=== PATIENT | female | born 1940 | race Caucasian/White ===

== ENCOUNTER 2016-12-23 22:06 | Inpatient (IN) | payer MEDICARE, OTHER ==
[~2016-12-23] VITALS: Ht 160 cm; Wt 51.4 kg
[2016-12-23] MEDS ORDERED: FAMOTIDINE 20 MG INJ IV STA (22:17)
[2016-12-23] MEDS ORDERED: INSU100V3 IJ (22:26)
[2016-12-23] MEDS ORDERED: DULO60CA6 GTB (22:27)
[2016-12-23] MEDS ORDERED: TRAZ50TA18 GTB (22:27)
[2016-12-23] MEDS ORDERED: ATOR10TA65 GTB (22:28)
[2016-12-23] MEDS ORDERED: ERGO500037 PO (22:28)
[2016-12-23] MEDS ORDERED: ACID1TAB14 GTB (22:29)
[2016-12-23] MEDS ORDERED: PRED5 GTB (22:30)
[2016-12-23] MEDS ORDERED: MULTI GTB (22:30)
[2016-12-23] MEDS ORDERED: MAGN400O4 GTB (22:31)
[2016-12-23] MEDS ORDERED: BETH50TA GTB (22:31)
[2016-12-23] MEDS ORDERED: CLON-379 GTB (22:32)
[2016-12-23] MEDS ORDERED: LACT20SO2 GTB (22:32)
[2016-12-23] MEDS ORDERED: FERR325C GTB (22:33)
[2016-12-23] MEDS ORDERED: DOCU60SY5 GTB (22:34)
[2016-12-23] MEDS ORDERED: UDREG GTB (22:34)
[2016-12-23] MEDS ORDERED: LEVO75TA5 PO (22:34)
[2016-12-23] MEDS ORDERED: MAGN400T28 GTB (22:35)
[2016-12-23] MEDS ORDERED: SENN-53 GTB (22:35)
[2016-12-23] MEDS ORDERED: LYR75 GTB (22:36)
[2016-12-23] MEDS ORDERED: SODI1TAB2 GTB (22:36)
[2016-12-23] MEDS ORDERED: TERA5CAP3 GTB (22:36)
[2016-12-23] MEDS ORDERED: SIME80TA GTB (22:37)
[2016-12-23] MEDS ORDERED: METO25TA4 GTB (22:38)
[2016-12-23] MEDS ORDERED: AMIO200T2 GTB (22:38)
[2016-12-23] MEDS ORDERED: EPOE10002 IJ (22:39)
[2016-12-23 23:05] LABS: BASOPHILS % 0.3 % (0.0-2.0); EOSINOPHILS # 0.1 10^3/ul (0.0-0.5); EOSINOPHILS % 0.9 % (0.0-7.0); HEMATOCRIT 22.3 % (37.0-47.0); HEMOGLOBIN 7.2 g/dl (12.0-16.0); LYMPHOCYTES # 1.1 10^3/ul (0.8-2.9); LYMPHOCYTES % 12.9 % (15.0-51.0); MEAN CORPUSCULAR HEMOGLOBIN 27.9 pg (29.0-33.0); MEAN CORPUSCULAR HGB CONC 32.5 g/dl (32.0-37.0); MEAN PLATELET VOLUME 9.2 fl (7.4-10.4); MONOCYTE # 0.8 10^3/ul (0.3-0.9); MONOCYTES % 9.3 % (0.0-11.0); NEUTROPHIL # 6.6 10^3/ul (1.6-7.5); NEUTROPHILS % 76.6 % (39.0-77.0); PLATELET COUNT 249 10^3/UL (140-440); RED BLOOD COUNT 2.59 10^6/ul (4.20-5.40); RED CELL DISTRIBUTION WIDTH 17.8 % (11.5-14.5); UNCORRECTED WBC 8.6 10^3/ul (4.8-10.8); WHITE BLOOD COUNT 8.6 10^3/ul (4.8-10.8)
[2016-12-23 23:11] LABS: CONDITION 1; LH ANALYZER COMMENTS 1
[2016-12-23 23:15] LABS: ALBUMIN 2.6 g/dl (3.3-4.9); CHLORIDE 93 mmol/L (97-110)
[2016-12-23 23:16] LABS: POTASSIUM 3.8 mmol/L (3.5-5.1); SODIUM 136 mmol/L (135-144)
--- NOTE | 2016-12-23 23:16 | RADRPT ---
PROCEDURE: XR Chest. CLINICAL INDICATION: Shortness of breath TECHNIQUE: A single portable view of the chest was obtained. COMPARISON: None FINDINGS: A tracheostomy tube is seen. The aorta is tortuous and atherosclerotic. The cardiomediastinal silh ouette is otherwise mildly enlarged. Bilateral pleural effusions are seen with bibasilar air space d isease. Mild diffuse pulmonary vascular congestion is seen. The soft tissues and osseous structures demonstrate benign age related senescent changes. IMPRESSION: 1. Bilateral pleural effusions with bibasilar air space disease. 2. Mild diffuse pulmonary vascular congestion. 3. Mild cardiomegaly. RPTAT: HPNM Physician Sree Date Time Electronically viewed and signed by Maged Sim Physician on 12/23/2016 23:16 /
[2016-12-23 23:17] LABS: INR 1.04; PROTIME 13.6 Sec (12.2-14.2); PT RATIO 1.1
[2016-12-23 23:18] LABS: ANION GAP 12 (8-16); CARBON DIOXIDE 35 mmol/L (21-31); CREATININE 0.58 mg/dl (0.44-1.00)
[2016-12-23 23:19] LABS: ALANINE AMINOTRANSFERASE 28 IU/L (13-69); ALBUMIN/GLOBULIN RATIO 0.96; ALKALINE PHOSPHATASE 35 IU/L (42-121); ASPARTATE AMINO TRANSFERASE 16 IU/L (15-46); BLOOD UREA NITROGEN 16 mg/dl (7-20); CALCIUM 8.5 mg/dl (8.4-10.2); GLUCOSE 88 mg/dl (70-220); TOTAL PROTEIN 5.3 g/dl (6.1-8.1)
[2016-12-23 23:35] LABS: TROPONIN-I < 0.012 ng/ml (0.00-0.12)
[2016-12-24] VITALS (11 sets, daily range): BP systolic 126–148; BP diastolic 60–70; PULSE 64–77; RESP 17–22; TEMP 98.6; Ht 160 cm; Wt 51.4 kg
[2016-12-24] MEDS ORDERED: ALBUTEROL 0.5% (NEB) 2.5 MG/0.5 ML AMP HHN ONE (01:12)
[2016-12-24] MEDS ORDERED: IPRATROPIUM (NEB) 0.5 MG/2.5 ML AMP HHN ONE (01:12)
--- NOTE | 2016-12-24 01:12 | ERA ---
ER Documentation Chief Complaint Date/Time DATE: 12/24/16 TIME: 01:03 Chief Complaint LOW HEMOGLOBIN 7.0, HEMATOCRIT 22.3 HPI 76-year-old female multiple medical comorbidities sent for low hemoglobin of 7 it would likely require transfusion. Patient has chronic trach patient but is communicative. States that this happened to her before requiring transfusion. She denies any GI bleeding. She does feel very weak, dizzy and lightheaded. Also states that she has mild shortness of breath. Denies any chest pain. ROS All systems reviewed and are negative except as per history of present illness. Medications Home Meds Reported Medications Epoetin Marlo (Procrit) 10,000 Unit/1 Ml Vial, 95057 UNIT IJ TUE, LUPE, SAT, VIAL 12/23/16 Amiodarone Hcl* (Amiodarone Hcl*) 200 Mg Tablet, 200 MG GTB DAILY, #30 TAB 12/23/16 Metoprolol Tartrate* (Lopressor*) 25 Mg Tablet, 12.5 MG GTB BID, #60 TAB 12/23/16 Simethicone* (Anti-Gas/80*) 80 Mg Tab.chew, 80 MG GTB Q8 Y for DISTENSION/GAS/ BLOATING, TAB.CHEW 12/23/16 Pregabalin* (Lyrica*) 75 Mg Capsule, 75 MG GTB Q8, CAP 12/23/16 Terazosin Hcl* (Terazosin Hcl*) 5 Mg Capsule, 5 MG GTB Q12, CAP 12/23/16 Sodium Chloride* (Sodium Chloride*) 1 Gm Tablet, 1 GM GTB BID, TAB 12/23/16 Sennosides* (Senna Lax*) 8.6 Mg Tablet, 1 TAB GTB BID, TAB 12/23/16 Magnesium Oxide* (Magnesium Oxide*) 400 Mg Tablet, 400 MG GTB Q12, TAB 12/23/16 Docusate Sodium* (Docusate Sodium*) 60 Mg/15 Ml Syrup, 100 MG GTB Q12, ML 12/23/16 Levothyroxine Sodium* (Levothyroxine Sodium*) 75 Mcg Tablet, 75 MCG PO BEFORE BREAKFAST, #30 TAB 12/23/16 Metoclopramide* (Reglan*) 10 Mg/10 Ml Soln, 5 MG GTB Q6, ML 2/3/17 Ferrous Sulfate (Iron) 325 Mg Capsule.er, 330 MG GTB Q8, CAP 12/23/16 Lactulose* (Lactulose*) 20 Gm/30 Ml Solution, 20 GM GTB BID Y for CONSTIPATION, ML 12/23/16 Clonidine Hcl* (Clonidine Hcl*) 0.1 Mg Tab, 0.1 MG GTB Q8 Y for ELEVATED BLOOD PRESSURE, TAB 12/23/16 Magnesium Hydroxide* (Milk Of Magnesia*) 400 Mg/5 Ml Oral.susp, 30 ML GTB DAILY , ML 12/23/16 Bethanechol Chloride* (Bethanechol Chloride*) 50 Mg Tablet, 50 MG GTB QID, TAB 12/23/16 Multivitamins* (Theragran*) 1 Tab Tab, 1 TAB GTB DAILY, TAB 12/23/16 Prednisone* (Prednisone*) 5 Mg Tab, 5 MG GTB DAILY, TAB 17 Lactobacillus Acidoph/Bulgaricus* (Floranex*) 1 Each Tablet, 1 TAB.CHEW GTB DAILY, TAB.CHEW 12/23/16 Ergocalciferol (Vitamin D2) (VITAMIN D2) 50,000 Unit Capsule, 16462 UNIT PO FRIDAYS, CAP 12/23/16 Atorvastatin Calcium (Atorvastatin Calcium) 10 Mg Tablet, 5 MG GTB QHS, #30 TAB 12/23/16 Trazodone Hcl* (Trazodone Hcl*) 50 Mg Tablet, 50 MG GTB QHS, #30 TAB 12/23/16 Duloxetine Hcl* (Cymbalta*) 60 Mg Capsule.dr, 60 MG GTB DAILY, CAP 12/23/16 Insulin Regular, Human (Humulin R) 100 Unit/1 Ml Vial, 0-10 UNIT IJ Q6, VIAL 12/23/16 Allergies Allergies: Coded Allergies: Penicillins (Verified Allergy, Severe, 12/23/16) celecoxib (Verified Allergy, Severe, 12/23/16) pentazocine (Verified Allergy, Severe, 12/23/16) PMhx/Soc Hx Alcohol Use: No Hx Substance Use: No Hx Tobacco Use: No Smoking Status: Unknown if ever smoked Physical Exam Vitals Vital Signs Date Time Temp Pulse Resp B/P Pulse Ox O2 Delivery O2 Flow Rate FiO2 12/24/16 00:05 62 23 100 30 12/23/16 23:00 98.0 61 18 94/54 95 Mechanical Ventilator 12/23/16 22:20 65 21 95 30 12/23/16 22:15 67 17 98/52 93 Physical Exam Const: [] Mild distress, appears uncomfortable Head: Atraumatic Eyes: Normal Conjunctiva ENT: Normal External Ears, Nose and Mouth. Neck: Full range of motion..~ No meningismus. Resp: Decreased bibasilar breath sounds prolonged expiratory time. Cardio: Regular rate and rhythm, no murmurs Abd: Soft, non tender, non distended. Normal bowel sounds Skin: No petechiae or rashes Back: No midline or flank tenderness Ext: No cyanosis, or edema Neur: Awake and alert and oriented 3, no focal deficits Psych: Normal Mood and Affect Result Diagram: 12/23/16223412/23/162234 Results 24 hrs Laboratory Tests Test 12/23/16 22:35 Activated Partial Thromboplast Time 33.0Sec Alanine Aminotransferase (ALT/SGPT) 28IU/L Albumin 2.6g/dl Albumin/Globulin Ratio 0.96 Alkaline Phosphatase 35IU/L Anion Gap 12 Aspartate Amino Transf (AST/SGOT) 16IU/L Basophils # 0.010^3/ul Basophils % 0.3% Blood Morphology Comment Blood Urea Nitrogen 16mg/dl Calcium Level 8.5mg/dl Carbon Dioxide Level 35mmol/L Chloride Level 93mmol/L Creatinine 0.58mg/dl Direct Bilirubin 0.00mg/dl Eosinophils # 0.110^3/ul Eosinophils % 0.9% Globulin 2.70g/dl Glucose Level 88mg/dl Hematocrit 22.3% Hemoglobin 7.2g/dl INR International Normalized Ratio 1.04 Indirect Bilirubin 0.0mg/dl Lymphocytes # 1.110^3/ul Lymphocytes % 12.9% Mean Corpuscular Hemoglobin 27.9pg Mean Corpuscular Hemoglobin Concent 32.5g/dl Mean Corpuscular Volume 86.0fl Mean Platelet Volume 9.2fl Monocytes # 0.810^3/ul Monocytes % 9.3% Neutrophils # 6.610^3/ul Neutrophils % 76.6% Nucleated Red Blood Cells # 0.010^3/ul Nucleated Red Blood Cells % 0.0/100WBC Platelet Count 15199^3/UL Potassium Level 3.8mmol/L Prothrombin Time 13.6Sec Prothrombin Time Ratio 1.1 Red Blood Count 2.5910^6/ul Red Cell Distribution Width 17.8% Sodium Level 136mmol/L Total Bilirubin 0.0mg/dl Total Protein 5.3g/dl Troponin I < 0.012ng/ml White Blood Count 8.610^3/ul Current Medications Medications (Trade) Dose Ordered Sig/Sandi Route PRN Reason Start Time Stop Time Status Last Admin Dose Admin Famotidine (Pepcid Iv) 20 mg ONCE STAT IV 12/23/16 22:17 12/23/16 22:18 DC 12/23/16 23:24 Procedures/MDM Acute symptomatic anemia as well as COPD exacerbation. Patient being transfused 2 units of packed red blood cells in the emergency room. Also has signs of pulmonary vascular engorgement and mild CHF on x-ray. She was given 20 mg of Lasix as well. Also states that she is short of breath and has prolonged expiratory time likely consistent with her chronic diagnosis of COPD being exacerbated. It iron studies and the emergency room as patient has no prior visits here to help with the anemia workup. Patient is feeling better in the emergency room somewhat. She still feels very weak and dizzy but her shortness of breath is improved. Also has a history of coronary artery disease and STEMI with stenting but does not have any signs of ischemia on her EKG and no chest pain. Dr. Caceres was paged as is the patient's primary care doctor. was covering. And requested the patient be admitted to the hospitalist. Dr. Philip's admitting the patient. EKG interpretation: Normal sinus rhythm rate 62, normal axis, no ST-T wave changes concerning for acute ischemia puppy trainer interpretation: Normal sinus rhythm without arrhythmia Chest x-ray interpretation: Pulmonary vascular engorgement indicating mild CHF, no infiltrates, no widened mediastinum, no fractures Critical care time 33 minutes: This includes time spent balancing acute symptomatic anemia of unknown etiology with congestive heart failure and COPD, chart review, careful fluid administration and maintenance of fluid balance while administering blood which is ministered in the emergency room, monitoring for any possible reactions, chart review, discussion with admitting doctor and patient. She does not include any global procedures. Departure Diagnosis: Primary Impression: Symptomatic anemia Additional Impressions: COPD exacerbation CHF (congestive heart failure) Dyspnea Generalized weakness Condition: Serious PATRICIA MOSES DO Dec 24, 2016 01:12
[2016-12-24 01:13] LABS: IRON 33 ug/dl (35-150)
[2016-12-24 01:22] LABS: TOTAL IRON BINDING CAPACITY 207 ug/dl (241-421)
[2016-12-24] MEDS ORDERED: FUROSEMIDE 20 MG INJ IV ONE (01:30)
[2016-12-24] MEDS ORDERED: ONDANSETRON 4 MG INJ IV PRN ×2 (01:30→07:30)
[2016-12-24] MEDS ORDERED: ACETAMINOPHEN 325 MG TAB PO PRN (01:30)
[2016-12-24 02:49] LABS: RETICULOCYTE COUNT % 3.2 % (0.5-1.5)
[2016-12-24] MEDS: HYDROCODONE/APAP (5/325) TAB PO PRN (06:57)
[2016-12-24] MEDS: LORAZEPAM 0.5 MG TAB PO PRN (06:57)
--- NOTE | 2016-12-24 07:24 | HP ---
Date/Time of Note Date/Time of Note DATE: 12/24/16 TIME: 07:16 Assessment/Plan VTE Prophylaxis VTE Prophylaxis Intervention: SCD's Assessment/Plan Assessment/Plan IMPRESSION 1. Anemia, rule out GI Bleed 2. Chronic Trach dependent resp Failure 3. Diabetes 4. Hypothyroidism 5. Dyslipidemia 6. Major depressive Disorder Plan Blood Transfusion check iron profile and FOBT GI Consult Cont home meds with adjustment as needed Pulmonary consult HPI/ROS Admit Date/Time Admit Date/Time Hx of Present Illness 76-year-old female multiple medical comorbidities sent for low hemoglobin of 7 it would likely require transfusion. Patient has chronic trach patient but is communicative. States that this happened to her before requiring transfusion. She denies any GI bleeding. She does feel very weak, dizzy and lightheaded. Also states that she has mild shortness of breath. Denies any chest pain. In ER, she was found to have a Hgb of 7.2. Vitals have been stable PMH/Family/Social Social History Smoking Status: Unknown if ever smoked Exam/Review of Systems Vital Signs Vitals Vital Signs Date Time Temp Pulse Resp B/P Pulse Ox O2 Delivery O2 Flow Rate FiO2 12/24/16 05:30 98.2 63 16 117/59 98 Mechanical Ventilator 12/24/16 04:50 30 Intake and Output 12/23/16 12/23/16 12/24/16 15:00 23:00 07:00 Intake Total 700 ml Balance 700 ml Labs Result Diagram: 12/23/16223412/23/162234 Medications Medications Current Medications Acetaminophen/ Hydrocodone Bitart ([place] (5/325)) 1 tab Q6 PRN PO PAIN Last administered on 12/24/16 06:57; Admin Dose 1 TAB; Start 12/24/16 at 05:30 Lorazepam (Ativan) 0.5 mg Q6 PRN PO ANXIETY Last administered on 12/24/16 06:57 ; Admin Dose 0.5 MG; Start 12/24/16 at 05:30 HUGH MELGOZA MD Dec 24, 2016 07:24
[2016-12-24] MEDS ORDERED: ACETAMINOPHEN 650 MG SUPP PR PRN (07:30)
[2016-12-24] MEDS ORDERED: NACL 0.9% 3 ML SYG IV SCH (07:30)
[2016-12-24 08:25] LABS: RED BLOOD COUNT 3.36 10^6/ul (4.20-5.40); WHITE BLOOD COUNT 9.4 10^3/ul (4.8-10.8)
[2016-12-24 08:26] LABS: HEMATOCRIT 29.2 % (37.0-47.0); HEMOGLOBIN 9.6 g/dl (12.0-16.0); MEAN CORPUSCULAR HEMOGLOBIN 28.6 pg (29.0-33.0); MEAN CORPUSCULAR HGB CONC 32.9 g/dl (32.0-37.0); MEAN CORPUSCULAR VOLUME 86.9 fl (82.0-101.0); PLATELET COUNT 231 10^3/UL (140-440); RED CELL DISTRIBUTION WIDTH 15.5 % (11.5-14.5)
[2016-12-24 08:30] LABS: ALBUMIN 2.7 g/dl (3.3-4.9); BASOPHILS % 0.5 % (0.0-2.0); EOSINOPHILS % 1.3 % (0.0-7.0); LYMPHOCYTES % 13.3 % (15.0-51.0); MONOCYTES % 11.8 % (0.0-11.0); NEUTROPHIL # 6.7 10^3/ul (1.6-7.5); NEUTROPHILS % 71.3 % (39.0-77.0); NUCLEATED RED BLOOD CELLS% 0.2 /100WBC (0.0-0.0); POTASSIUM 3.4 mmol/L (3.5-5.1)
[2016-12-24 08:31] LABS: BASOPHIL # 0.1 10^3/ul (0.0-0.1); EOSINOPHILS # 0.1 10^3/ul (0.0-0.5); LYMPHOCYTES # 1.3 10^3/ul (0.8-2.9); MONOCYTE # 1.1 10^3/ul (0.3-0.9)
[2016-12-24 08:32] LABS: BILIRUBIN,INDIRECT 0.6 mg/dl (0-1.1); BILIRUBIN,TOTAL 0.6 mg/dl (0.2-1.3); CREATININE 0.52 mg/dl (0.44-1.00)
[2016-12-24 08:33] LABS: CALCIUM 8.6 mg/dl (8.4-10.2); TOTAL PROTEIN 5.4 g/dl (6.1-8.1)
[2016-12-24] MEDS: ALBUTEROL/IPRATROPIUM (NEB) 3 ML AMP HHN SCH ×2 (08:40→13:28)
[2016-12-24] MEDS: FAMOTIDINE 20 MG INJ IV SCH (08:51)
[2016-12-24] MEDS ORDERED: ALBUTEROL 0.5% (NEB) 2.5 MG/0.5 ML AMP NEB SCH (09:00)
[2016-12-24] MEDS ORDERED: FAMOTIDINE 20 MG INJ IV SCH (09:00)
[2016-12-24] MEDS ORDERED: IPRATROPIUM (NEB) 0.5 MG/2.5 ML AMP NEB SCH (09:00)
[2016-12-24] MEDS: morphine 2 MG INJ IV PRN ×3 (11:37→22:43)
[2016-12-24] MEDS: LORAZEPAM 2 MG INJ IV PRN ×3 (12:20→23:46)
[2016-12-24] MEDS ORDERED: LEVO750T25 PO (12:45)
[2016-12-24] MEDS ORDERED: FURO-110 PO (12:46)
[2016-12-24] MEDS: LEVOFLOXACIN 750 MG TABLET GTB SCH (14:28)
[2016-12-24] MEDS ORDERED: POTASSIUM CHLORIDE 20 MEQ POWDER FOR ORAL SOLN GTB ONE (19:30)
[2016-12-24] MEDS: IPRATROPIUM (HFA) 12.9 GM INHALER INH SCH (20:17)
[2016-12-24] MEDS: ALBUTEROL HFA 8 GM INHALER INH SCH (20:17)
[2016-12-25] VITALS (36 sets, daily range): BP systolic 107–163; BP diastolic 38–114; PULSE 60–93; RESP 16–28
[2016-12-25] MEDS: ALBUTEROL HFA 8 GM INHALER INH SCH ×6 (01:32→20:30)
[2016-12-25] MEDS: IPRATROPIUM (HFA) 12.9 GM INHALER INH SCH ×6 (01:32→20:29)
[2016-12-25] MEDS: morphine 2 MG INJ IV PRN ×5 (03:47→21:10)
[2016-12-25 04:27] LABS: AADO2 Arterial 159.7 mmHg (7.0-24.0); Allen Test ACCEPTAB; Arterial COHb 0.2 % (0.0-3.0); Arterial Fraction of Oxyhgb 92.9 % (93.0-99.0); Arterial HCO3 32.1 mmol/L (22.0-26.0); Arterial MetHb 0.2 % (0.0-1.5); Arterial Total Hemglobin 10.7 g/dl (12.0-18.0)
[2016-12-25 04:50] LABS: POTASSIUM 3.8 mmol/L (3.5-5.1)
[2016-12-25 04:53] LABS: CREATININE 0.51 mg/dl (0.44-1.00)
[2016-12-25 04:54] LABS: CALCIUM 8.9 mg/dl (8.4-10.2); MAGNESIUM 1.4 mg/dl (1.7-2.5); PHOSPHORUS 4.7 mg/dl (2.5-4.9)
[2016-12-25 05:01] LABS: BASOPHIL # 0.1 10^3/ul (0.0-0.1); BASOPHILS % 0.7 % (0.0-2.0); EOSINOPHILS # 0.1 10^3/ul (0.0-0.5); EOSINOPHILS % 1.4 % (0.0-7.0); HEMATOCRIT 29.9 % (37.0-47.0); HEMOGLOBIN 9.9 g/dl (12.0-16.0); LYMPHOCYTES # 1.2 10^3/ul (0.8-2.9); LYMPHOCYTES % 14.2 % (15.0-51.0); MEAN CORPUSCULAR HEMOGLOBIN 28.7 pg (29.0-33.0); MEAN CORPUSCULAR HGB CONC 33.2 g/dl (32.0-37.0); MEAN CORPUSCULAR VOLUME 86.5 fl (82.0-101.0); MONOCYTE # 0.9 10^3/ul (0.3-0.9); NEUTROPHIL # 6.3 10^3/ul (1.6-7.5); NEUTROPHILS % 73.7 % (39.0-77.0); PLATELET COUNT 252 10^3/UL (140-440); RED BLOOD COUNT 3.46 10^6/ul (4.20-5.40); RED CELL DISTRIBUTION WIDTH 16.7 % (11.5-14.5); UNCORRECTED WBC 8.5 10^3/ul (4.8-10.8); WHITE BLOOD COUNT 8.5 10^3/ul (4.8-10.8)
[2016-12-25 05:42] LABS: CONDITION 1; LH ANALYZER COMMENTS 1
[2016-12-25] MEDS: FAMOTIDINE 20 MG INJ IV SCH (08:46)
[2016-12-25] MEDS: AMIODARONE 200 MG TAB GTB SCH (08:46)
[2016-12-25] MEDS: LEVOFLOXACIN 750 MG TABLET GTB SCH (08:47)
[2016-12-25] MEDS: METOPROLOL 25 MG TAB GTB SCH ×2 (08:47→20:46)
[2016-12-25] MEDS: TERAZOSIN 5 MG CAP GTB SCH ×2 (08:47→21:00)
[2016-12-25] MEDS: LORAZEPAM 2 MG INJ IV PRN ×3 (09:10→21:36)
--- NOTE | 2016-12-25 11:29 | PN ---
Date/Time of Note Date/Time of Note DATE: 12/25/16 TIME: 11:27 Assessment/Plan VTE Prophylaxis VTE Prophylaxis Intervention: SCD's Lines/Catheters IV Catheter Type (from Nrs): Saline Lock Urinary Cath still in place: Yes Reason Cath still needed: other (indicate) Assessment/Plan Assessment/Plan IMPRESSION Anemia, rule out GI Bleed + Iron deficiency * third admission for anemia in the last 90 days per family * on each admission,patient routinely got 2 units of blood * patient had been started on outpt epogen Hx of endoscopy with duodenal perforation in the past that warranted complicated repair Acute resp failure likely 2/2 fluid overload versus CHF Chronic Trach / Vent dependent resp Failure Hypothyroidism Dyslipidemia Major depressive Disorder Hypomagnesemia Plan Commence gentle diuresis / 2D echo Await GI review and recommendations Replace lytes and IV iron Pulmonary consult Resume previous home meds Supportive care Spoke with family in detail, patient remains full code. evaluation time >35mins PROPHYLAXIS: SCDs / PPI Subjective 24 Hr Interval Summary Free Text/Dictation Patient seen and examined. very lethargic / tachypneic Exam/Review of Systems Vital Signs Vitals Vital Signs Date Time Temp Pulse Resp B/P Pulse Ox O2 Delivery O2 Flow Rate FiO2 12/25/16 09:00 72 22 131/75 96 Trach Collar 12/25/16 08:00 97.3 12/25/16 05:22 40 Intake and Output 12/24/16 12/24/16 12/25/16 15:00 23:00 07:00 Intake Total 20 ml Output Total 675 ml Balance 20 ml -675 ml Exam Constitutional: alert, frail Eyes: PERRL Respiratory: crackles/rales, diminished breath sounds Cardiovascular: regular rate and rhythm, No murmurs/extra sounds Gastrointestinal: bowel sounds, soft Extremities: No edema 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: confused (?), lethargic Results Result Diagram: 12/25/16 0422 12/25/16 0422 Results 24 hrs Laboratory Tests Test 12/25/16 04:13 12/25/16 04:22 Arterial Blood HCO3 32.1 H Arterial Blood Base Excess 7.0 H Arterial Blood Oxygen Saturation 93.3 L David Test ACCEPTAB Arterial Blood Gas Puncture Site Left Radial Arterial Blood Carboxyhemoglobin 0.2 Arterial Blood Date Drawn 12/25/2016 4:14:39 AM Arterial Blood Methemoglobin 0.2 Arterial Blood pCO2 (Temp correct) 48.2 H Arterial Blood pH (Temp corrected) 7.441 Arterial Blood pO2 (Temp corrected) 70.1 L Blood Gas A-a O2 Differential 159.7 H Blood Gas Actual Respiration Rate 19 Blood Gas Inspiratory Pressure 27.0 Blood Gas Low PEEP Setting 5.0 Blood Gas Modality vent-ac Blood Gas Notified Time 12/25/2016 4:27:18 AM Blood Gas Notified Whom jmd Blood Gas Respiration Rate 14.0 Blood Gas Specimen Source Blood arterial Blood Gas Temperature 37.0 Blood Gas Tidal Volume 400.0 FiO2 40.0 Oxyhemoglobin Percent 92.9 L Total Hemoglobin 10.7 L Anion Gap 15 Basophils # 0.1 Basophils % 0.7 Blood Morphology Comment Blood Urea Nitrogen 15 Calcium Level 8.9 Carbon Dioxide Level 32 H Chloride Level 95 L Creatinine 0.51 Eosinophils # 0.1 Eosinophils % 1.4 Glucose Level 62 #L Hematocrit 29.9 L Hemoglobin 9.9 L Lymphocytes # 1.2 Lymphocytes % 14.2 L Magnesium Level 1.4 L Mean Corpuscular Hemoglobin 28.7 L Mean Corpuscular Hemoglobin Concent 33.2 Mean Corpuscular Volume 86.5 Mean Platelet Volume 9.0 Monocytes # 0.9 Monocytes % 10.0 Neutrophils # 6.3 Neutrophils % 73.7 Nucleated Red Blood Cells # 0.0 Nucleated Red Blood Cells % 0.0 Phosphorus Level 4.7 Platelet Count 252 Potassium Level 3.8 Red Blood Count 3.46 L Red Cell Distribution Width 16.7 H Sodium Level 138 White Blood Count 8.5 Medications Medications Current Medications Acetaminophen/ Hydrocodone Bitart ([place] (5/325)) 1 tab Q6 PRN PO PAIN Last administered on 12/24/16 06:57; Admin Dose 1 TAB; Start 12/24/16 at 05:30 Lorazepam (Ativan) 0.5 mg Q6 PRN PO ANXIETY Last administered on 12/24/16 06:57 ; Admin Dose 0.5 MG; Start 12/24/16 at 05:30 Lorazepam (Ativan) 0.5 mg Q6H PRN IV ANXIETY Last administered on 12/25/16 09: 10; Admin Dose 0.5 MG; Start 12/24/16 at 07:30 Ondansetron HCl (Zofran Inj) 4 mg Q6H PRN IV NAUSEA AND/OR VOMITING; Start 12/24 at 07:30 Acetaminophen (Tylenol Supp) 650 mg Q6H PRN [place] PAIN LEVEL 1-3 OR FEVER; Start 12/24/16 at 07:30 Morphine Sulfate (morphine) 2 mg Q4H PRN IV PAIN LEVEL 7-10 Last administered on 12/25/16 08:46; Admin Dose 2 MG; Start 12/24/16 at 07:30 Famotidine (Pepcid Iv) 20 mg DAILY IV Last administered on 12/25/16 08:46; Admin Dose 20 MG; Start 12/24/16 at 09:00 Levofloxacin (Levaquin) 750 mg DAILY GTB Last administered on 12/25/16 08:47; Admin Dose 750 MG; Start 12/24/16 at 14:30; Stop 12/26/16 at 14:29 Amiodarone HCl (Cordarone) 200 mg DAILY GTB Last administered on 12/25/16 08:46 ; Admin Dose 200 MG; Start 12/25/16 at 09:00 Clonidine (Catapres) 0.1 mg Q8 PRN GTB ELEVATED BLOOD PRESSURE>150; Start at 04:30 Metoprolol Tartrate (Lopressor) 12.5 mg BID GTB Last administered on 12/25/16 08:47; Admin Dose 12.5 MG; Start 12/25/16 at 09:00 Terazosin HCl (Hytrin) 5 mg Q12 GTB Last administered on 12/25/16 08:47; Admin Dose 5 MG; Start 12/25/16 at 09:00 Procedures Procedures PROCEDURE: XR Chest. CLINICAL INDICATION: Shortness of breath TECHNIQUE: A single portable view of the chest was obtained. COMPARISON: None FINDINGS: A tracheostomy tube is seen. The aorta is tortuous and atherosclerotic. The cardiomediastinal silhouette is otherwise mildly enlarged. Bilateral pleural effusions are seen with bibasilar air space disease. Mild diffuse pulmonary vascular congestion is seen. The soft tissues and osseous structures demonstrate benign age related senescent changes. IMPRESSION: 1. Bilateral pleural effusions with bibasilar air space disease. 2. Mild diffuse pulmonary vascular congestion. 3. Mild cardiomegaly. RPTAT: HPNM Maged Sim, Physician Date Time Electronically viewed and signed by Maged Sim, Physician on 12/23/2016 23 :16 KOLE GEE Dec 25, 2016 11:29
[2016-12-25] MEDS ORDERED: MAGNESIUM SULFATE 2 GM/50 ML 50 ML IVPB ONE (11:45)
[2016-12-25] MEDS ORDERED: FUROSEMIDE 40 MG INJ IV ONE (12:00)
[2016-12-25] MEDS: DEXTROSE 5%-0.45% NACL 1,000 ML IV SCH (12:55)
[2016-12-25] MEDS: SOD FERRIC GLUC COMPLX 125 MG in SOD CHLORIDE 0.9% 100 ML IVPB SCH (14:14)
[2016-12-25] MEDS: PANTOPRAZOLE IV 80 MG in SOD CHLORIDE 0.9% 100 ML IV SCH (16:00)
--- NOTE | 2016-12-25 16:13 | CONS ---
Date/Time of Note Date/Time of Note DATE: 12/25/16 TIME: 15:59 Assessment/Plan Assessment/Plan Additional Assessment/Plan Anemia * Evaluate for PUD versus secondary to iron deficiency * Iron profile low, currently getting confused * Stool OB * Monitor hemoglobin every 6 hours, transfuse 2 units for hemoglobin less than 7.5 * PPI drip * May consider EGD and/or colonoscopy for further evaluation * Abdominal ultrasound Dysphagia * Dietary consult * [facility], pt to be on Jevity 1.5 to 40ml /hr x 20 hours to provide 800mL/1200 kcal. Will start on Fibersource and have nutrition adjust to comparable to tube feed type. Jevity not available in formulary. Tracheostomy dependent respiratory failure * Pulmonology following Further recommendations depend on clinical course Patient seen in collaboration with Dr. Alcocer Consultation Date/Type/Reason Admit Date/Time Reason for Consultation Gastroenterology Hx of Present Illness 76-year-old female presented to ED with anemia and hemoglobin of 7.8. Patient denies abdominal pain, nausea, vomiting, hematochezia, hematuria Past Surgical History Past Surgical Hx: other (Tracheostomy) Social History Smoking Status: Former smoker Exam/Review of Systems Vital Signs Vitals Vital Signs Date Time Temp Pulse Resp B/P Pulse Ox O2 Delivery O2 Flow Rate FiO2 12/25/16 14:00 60 17 126/62 97 Mechanical Ventilator Trach Collar 12/25/16 12:00 98.0 12/25/16 05:22 40 Intake and Output 12/24/16 12/24/16 12/25/16 15:00 23:00 07:00 Intake Total 20 ml Output Total 675 ml Balance 20 ml -675 ml Exam Constitutional: alert, oriented, other (Thin) Psych: nl mood/affect Head: atraumatic, normocephalic Eyes: EOMI, nl conjunctiva, nl lids, nl sclera ENMT: mucosa pink and moist, nl external ears & nose, nl lips & teeth, nl nasal mucosa & septum, other Cardiovascular: regular rate and rhythm Gastrointestinal: non-tender, soft Musculoskeletal: nl extremities to inspection 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: UX DESIGN LEAD II-XII intact Results Result Diagram: 12/25/16 0422 12/25/16 0422 Results 24 hrs Laboratory Tests Test 12/25/16 04:13 12/25/16 04:22 Arterial Blood HCO3 32.1 H Arterial Blood Base Excess 7.0 H Arterial Blood Oxygen Saturation 93.3 L David Test ACCEPTAB Arterial Blood Gas Puncture Site Left Radial Arterial Blood Carboxyhemoglobin 0.2 Arterial Blood Date Drawn 12/25/2016 4:14:39 AM Arterial Blood Methemoglobin 0.2 Arterial Blood pCO2 (Temp correct) 48.2 H Arterial Blood pH (Temp corrected) 7.441 Arterial Blood pO2 (Temp corrected) 70.1 L Blood Gas A-a O2 Differential 159.7 H Blood Gas Actual Respiration Rate 19 Blood Gas Inspiratory Pressure 27.0 Blood Gas Low PEEP Setting 5.0 Blood Gas Modality vent-ac Blood Gas Notified Time 12/25/2016 4:27:18 AM Blood Gas Notified Whom jmd Blood Gas Respiration Rate 14.0 Blood Gas Specimen Source Blood arterial Blood Gas Temperature 37.0 Blood Gas Tidal Volume 400.0 FiO2 40.0 Oxyhemoglobin Percent 92.9 L Total Hemoglobin 10.7 L Anion Gap 15 Basophils # 0.1 Basophils % 0.7 Blood Morphology Comment Blood Urea Nitrogen 15 Calcium Level 8.9 Carbon Dioxide Level 32 H Chloride Level 95 L Creatinine 0.51 Eosinophils # 0.1 Eosinophils % 1.4 Glucose Level 62 #L Hematocrit 29.9 L Hemoglobin 9.9 L Lymphocytes # 1.2 Lymphocytes % 14.2 L Magnesium Level 1.4 L Mean Corpuscular Hemoglobin 28.7 L Mean Corpuscular Hemoglobin Concent 33.2 Mean Corpuscular Volume 86.5 Mean Platelet Volume 9.0 Monocytes # 0.9 Monocytes % 10.0 Neutrophils # 6.3 Neutrophils % 73.7 Nucleated Red Blood Cells # 0.0 Nucleated Red Blood Cells % 0.0 Phosphorus Level 4.7 Platelet Count 252 Potassium Level 3.8 Red Blood Count 3.46 L Red Cell Distribution Width 16.7 H Sodium Level 138 White Blood Count 8.5 Medications Medications Current Medications Acetaminophen/ Hydrocodone Bitart ([place] (5/325)) 1 tab Q6 PRN PO PAIN Last administered on 12/24/16 06:57; Admin Dose 1 TAB; Start 12/24/16 at 05:30 Lorazepam (Ativan) 0.5 mg Q6 PRN PO ANXIETY Last administered on 12/24/16 06:57 ; Admin Dose 0.5 MG; Start 12/24/16 at 05:30 Lorazepam (Ativan) 0.5 mg Q6H PRN IV ANXIETY Last administered on 12/25/16 15: 08; Admin Dose 0.5 MG; Start 12/24/16 at 07:30 Ondansetron HCl (Zofran Inj) 4 mg Q6H PRN IV NAUSEA AND/OR VOMITING; Start 12/24 at 07:30 Acetaminophen (Tylenol Supp) 650 mg Q6H PRN [place] PAIN LEVEL 1-3 OR FEVER; Start 12/24/16 at 07:30 Morphine Sulfate (morphine) 2 mg Q4H PRN IV PAIN LEVEL 7-10 Last administered on 12/25/16 12:55; Admin Dose 2 MG; Start 12/24/16 at 07:30 Levofloxacin (Levaquin) 750 mg DAILY GTB Last administered on 12/25/16 08:47; Admin Dose 750 MG; Start 12/24/16 at 14:30; Stop 12/26/16 at 14:29 Amiodarone HCl (Cordarone) 200 mg DAILY GTB Last administered on 12/25/16 08:46 ; Admin Dose 200 MG; Start 12/25/16 at 09:00 Clonidine (Catapres) 0.1 mg Q8 PRN GTB ELEVATED BLOOD PRESSURE>150; Start at 04:30 Metoprolol Tartrate (Lopressor) 12.5 mg BID GTB Last administered on 12/25/16 08:47; Admin Dose 12.5 MG; Start 12/25/16 at 09:00 Terazosin HCl 5 mg 5 mg Q12 GTB Last administered on 12/25/16 08:47; Admin Dose 5 MG; Start 12/25/16 at 09:00 Ferric Sodium Gluconate Complex 125 mg/Sodium Chloride 110 ml @ 100 mls/hr Q24H IVPB Last administered on 12/25/16 14:14; Admin Dose 100 MLS/HR; Start 12/25/16 at 13:00; Stop 12/27/16 at 14:05 Dextrose/Sodium Chloride (D5-1/2ns) 1,000 ml @ 50 mls/hr Q20H IV Last administered on 12/25/16 12:55; Admin Dose 50 MLS/HR; Start 12/25/16 at 12:00 Famotidine (Pepcid Iv) 20 mg DAILY IV ; Start 12/26/16 at 09:00 CINDA VALDES Dec 25, 2016 16:11
--- NOTE | 2016-12-25 16:57 | CONS ---
DATE OF ADMISSION: 12/24/2016 DATE OF CONSULTATION: TYPE OF CONSULTATION: Pulmonary. REASON FOR CONSULTATION: Ventilator management. Thank you, Dr. Philip for this consultation. HISTORY OF PRESENT ILLNESS: This is a 76-year-old lady with multiple medical problems including renée t-dependent respiratory failure, history of COPD, hypertension, hyperlipidemia, who was transferred from alf facility for significant anemia with hemoglobin of 7.2. She had no evidence of active GI bleeding. No hemoptysis, hematemesis. No nausea, no vomiting. She remains awake, alert , and comfortable. PAST MEDICAL HISTORY: Depression, hypothyroidism, diabetes, hypertension, hyperlipidemia, COPD and respiratory failure with tracheostomy. MEDICATIONS: Per chart. ALLERGIES: PENICILLIN, CELECOXIB, pentosazone. FAMILY HISTORY: Noncontributory. SYSTEMS REVIEW: A 12-point review of systems was negative other than that mentioned above. PHYSICAL EXAMINATION: GENERAL: Chronically ill-appearing lady, appears comfortable at rest, no acute distress. VITAL SIGNS: Currently afebrile, pulse is 72, blood pressure 130/75, O2 saturation 96% on 40% trach collar. NECK: Trach site clean and intact. CARDIAC: S1, S2, no added sounds or murmurs. CHEST: Diminished air entry bilaterally. ABDOMEN: Soft, nontender. No guarding or rebound. EXTREMITIES: No cyanosis, clubbing, edema. NEUROLOGIC: Generalized weakness. LABORATORIES: White count now 9.9 following blood transfusion. White count 8.5, hemoglobin 9.9, shad telets of 252. BUN 15, creatinine 0.51. ABG: pH 7.4, pCO2 of 48, PaO2 of 70. INR 1.04. IMAGING: Chest x-ray shows bilateral pleural effusions. IMPRESSION AND PLAN: 1. Respiratory failure. 2. Probable underlying chronic obstructive pulmonary disease. 3. Hypertension. 4. Anemia. PLAN: 1. Monitor H and H post-transfusion. 2. Consider gentle diuresis for congestive cardiac failure and pleural effusions. 3. DVT and GI prophylaxis. Dictated By: ELÍAS HERNADEZ/AMY Conf#: [id number] DID#: [id number]
[2016-12-25] MEDS: FUROSEMIDE 40 MG INJ IV SCH (17:02)
--- NOTE | 2016-12-25 19:45 | RADRPT ---
PROCEDURE: US Abdomen complete. CLINICAL INDICATION: Abdominal pain TECHNIQUE: Multiple sonographic images of the abdomen and retroperitoneum were obtained. COMPARISON: None available FINDINGS: Liver: The liver is top normal in size, normal in echogenicity and contour without evidence of mass or ductal dilatation. The maximum dimension is estimated at 18 cm. Gallbladder: Findings are compatible with prior cholecystectomy Common bile duct: Dilated; 11.6 mm. Echogenic shadowing focus of 1.5 cm within the common bile duct is consistent with choledocholithiasis until proven otherwise Pancreas: The duct is measured at 2 mm within limits of normal, no mass lesion is evident. Right Kidney: Moderate hydronephrosis is present. There is no evidence of intrarenal calculus or m ass. The proximal ureter is measured at 1.1 cm. Renal length is estimated at 11 cm. Tiny punctate cortical echogenic foci possibly nephrocalcinosis are noted bilaterally. Left kidney: Normal size, contour and echogenicity with no mass, calculus or hydronephrosis. Renal length is estimated at 9.1 cm. Spleen: Normal in echogenicity measuring 10.9 cm. No masses are evident. Abdominal aorta: Diffuse atherosclerotic calcification is present with some mid and distal aortic e ctasia the maximum dimension however measuring less than 3 cm at 2.7 cm. No aneurysm is evident. IVC: No abnormalities demonstrated. Other: Bilateral pleural effusions slightly larger on the left. RPTAT:HJJR IMPRESSION: 1. Choledocholithiasis in this patient who is status post cholecystectomy, a 1.5 cm common bile bj t stone is visualized. 2. Bilateral pleural effusions slightly larger on the left. 3. Moderate right hydronephrosis. 4. Multiple tiny renal cortical calcifications are noted. 5. Atherosclerotic calcification of the aorta with aortic ectasia but no aneurysm. Physician Tessie Date Time Electronically viewed and signed by Physician Tessie on 12/25/2016 19:45 /
[2016-12-25] MEDS: LORAZEPAM 0.5 MG TAB PO PRN (20:45)
[2016-12-25] MEDS: ATORVASTATIN 10 MG TAB GTB SCH (20:45)
[2016-12-25] MEDS: HYDROCODONE/APAP (5/325) TAB PO PRN (20:45)
[2016-12-25] MEDS: BETHANECHOL 25 MG TAB GTB SCH (20:57)
[2016-12-25] MEDS: SENNA TAB GTB SCH (20:58)
[2016-12-25] MEDS: DOCUSATE SODIUM 10 MG/ML (10ML CUP) GTB SCH (20:58)
[2016-12-25] MEDS ORDERED: DOCUSATE SODIUM 100 MG GTB SCH (21:00)
[2016-12-25] MEDS: MAGNESIUM OXIDE 400 MG TAB GTB SCH (21:00)
[2016-12-26] VITALS (35 sets, daily range): BP systolic 70–151; BP diastolic 45–59; PULSE 58–80; RESP 13–25
[2016-12-26] MEDS: morphine 2 MG INJ IV PRN ×4 (01:21→18:05)
[2016-12-26] MEDS: IPRATROPIUM (HFA) 12.9 GM INHALER INH SCH ×6 (01:33→21:07)
[2016-12-26] MEDS: ALBUTEROL HFA 8 GM INHALER INH SCH ×6 (01:33→21:07)
[2016-12-26] MEDS: PANTOPRAZOLE IV 80 MG in SOD CHLORIDE 0.9% 100 ML IV SCH ×3 (03:18→22:00)
[2016-12-26 05:40] LABS: ALBUMIN 2.6 g/dl (3.3-4.9)
[2016-12-26 05:42] LABS: POTASSIUM 2.9 mmol/L (3.5-5.1)
[2016-12-26 05:43] LABS: BASOPHILS % 0.5 % (0.0-2.0); CREATININE 0.53 mg/dl (0.44-1.00); EOSINOPHILS % 0.7 % (0.0-7.0); HEMATOCRIT 29.6 % (37.0-47.0); LYMPHOCYTES # 1.1 10^3/ul (0.8-2.9); LYMPHOCYTES % 14.2 % (15.0-51.0); MEAN CORPUSCULAR HEMOGLOBIN 28.8 pg (29.0-33.0); MEAN CORPUSCULAR HGB CONC 33.8 g/dl (32.0-37.0); MEAN CORPUSCULAR VOLUME 85.3 fl (82.0-101.0); MONOCYTE # 0.9 10^3/ul (0.3-0.9); MONOCYTES % 11.7 % (0.0-11.0); NEUTROPHIL # 5.5 10^3/ul (1.6-7.5); NEUTROPHILS % 72.9 % (39.0-77.0); PLATELET COUNT 260 10^3/UL (140-440); RED BLOOD COUNT 3.47 10^6/ul (4.20-5.40); RED CELL DISTRIBUTION WIDTH 17.1 % (11.5-14.5); UNCORRECTED WBC 7.6 10^3/ul (4.8-10.8); WHITE BLOOD COUNT 7.6 10^3/ul (4.8-10.8)
[2016-12-26 05:44] LABS: CALCIUM 8.5 mg/dl (8.4-10.2); MAGNESIUM 1.5 mg/dl (1.7-2.5); PHOSPHORUS 4.1 mg/dl (2.5-4.9)
[2016-12-26] MEDS: FUROSEMIDE 40 MG INJ IV SCH ×2 (05:53→17:42)
[2016-12-26] MEDS ORDERED: POTASSIUM CHLORIDE 250 ML IVPB ONE (06:00)
[2016-12-26] MEDS: LEVOTHYROXINE 75 MCG TAB PO SCH (06:07)
[2016-12-26 06:11] LABS: THYROID STIMULATING HORMONE 5.88 MIU/L (0.465-4.680)
[2016-12-26 06:22] LABS: CONDITION 1; LH ANALYZER COMMENTS 1
--- NOTE | 2016-12-26 07:46 | CONS ---
Date/Time of Note Date/Time of Note DATE: 12/26/16 TIME: 07:43 Assessment/Plan Assessment/Plan Additional Assessment/Plan Assessment and recommendations; 1. Patient admitted with anemia status post blood transfusion with stable hematocrit. No evidence of any bleeding from any orifices. 2. Chronic respiratory failure, ventilator dependent. 3. History of hypertension, COPD, CHF, hypothyroidism. Next The current treatment. Ventilator settings have been adjusted, FiO2 has been dropped down to 30%. Continue current supportive care. Consultation Date/Type/Reason Admit Date/Time Dec 24, 2016 at 01:03 Initial Consult Date 24 HR Interval Summary Free Text/Dictation Patient condition is stable. Patient is awake, alert denies any shortness of breath, chest pain. General examination; elderly lady, on mechanical ventilation via tracheostomy, awake, currently in no distress. Exam/Review of Systems Vital Signs Vitals Vital Signs Date Time Temp Pulse Resp B/P Pulse Ox O2 Delivery O2 Flow Rate FiO2 12/26/16 06:00 63 15 137/51 97 Mechanical Ventilator 12/26/16 05:15 40 12/26/16 04:00 99.0 Intake and Output 12/25/16 12/25/16 12/26/16 15:00 23:00 07:00 Intake Total 150 ml 420 ml 1030 ml Output Total 1250 ml 2125 ml 610 ml Balance -1100 ml -1705 ml 420 ml Exam H EENT examination; supple neck, no JVD. Pupils are midsize bilaterally. No neck masses. No thyromegaly. No neck bruits. Chest examination; diminished breath sounds bilaterally. No added sounds. S1- S2 audible, no murmurs, regular rate and rhythm. Abdomen examination; soft, G-tube in place. No organomegaly. Nontender. Extremity examination; no peripheral edema. 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 Results Result Diagram: 12/26/16 0510 12/26/16 0510 Results 24 hrs Laboratory Tests Test 12/26/16 05:10 Albumin 2.6 L Anion Gap 12 Basophils # 0.0 Basophils % 0.5 Blood Morphology Comment Blood Urea Nitrogen 19 Calcium Level 8.5 Carbon Dioxide Level 37 H Chloride Level 92 L Creatinine 0.53 Eosinophils # 0.0 Eosinophils % 0.7 Glucose Level 117 # Hematocrit 29.6 L Hemoglobin 10.0 L Lymphocytes # 1.1 Lymphocytes % 14.2 L Magnesium Level 1.5 L Mean Corpuscular Hemoglobin 28.8 L Mean Corpuscular Hemoglobin Concent 33.8 Mean Corpuscular Volume 85.3 Mean Platelet Volume 9.0 Monocytes # 0.9 Monocytes % 11.7 H Neutrophils # 5.5 Neutrophils % 72.9 Nucleated Red Blood Cells # 0.0 Nucleated Red Blood Cells % 0.0 Phosphorus Level 4.1 Platelet Count 260 Potassium Level 2.9 *L Red Blood Count 3.47 L Red Cell Distribution Width 17.1 H Sodium Level 138 Thyroid Stimulating Hormone (TSH) 5.880 H White Blood Count 7.6 Medications Medications Current Medications Acetaminophen/ Hydrocodone Bitart ([place] (5/325)) 1 tab Q6 PRN PO PAIN Last administered on 12/25/16 20:45; Admin Dose 1 TAB; Start 12/24/16 at 05:30 Lorazepam (Ativan) 0.5 mg Q6 PRN PO ANXIETY Last administered on 12/25/16 20:45 ; Admin Dose 0.5 MG; Start 12/24/16 at 05:30 Lorazepam (Ativan) 0.5 mg Q6H PRN IV ANXIETY Last administered on 12/25/16 21: 36; Admin Dose 0.5 MG; Start 12/24/16 at 07:30 Ondansetron HCl (Zofran Inj) 4 mg Q6H PRN IV NAUSEA AND/OR VOMITING; Start 12/24 at 07:30 Acetaminophen (Tylenol Supp) 650 mg Q6H PRN [place] PAIN LEVEL 1-3 OR FEVER; Start 12/24/16 at 07:30 Morphine Sulfate (morphine) 2 mg Q4H PRN [place] PAIN LEVEL 7-10 Last administered on 12/26/16 06:29; Admin Dose 2 MG; Start 12/24/16 at 07:30 Levofloxacin (Levaquin) 750 mg DAILY GTB Last administered on 12/25/16 08:47; Admin Dose 750 MG; Start 12/24/16 at 14:30; Stop 12/26/16 at 14:29 Amiodarone HCl (Cordarone) 200 mg DAILY GTB Last administered on 12/25/16 08:46 ; Admin Dose 200 MG; Start 12/25/16 at 09:00 Clonidine (Catapres) 0.1 mg Q8 PRN GTB ELEVATED BLOOD PRESSURE>150; Start at 04:30 Metoprolol Tartrate (Lopressor) 12.5 mg BID GTB Last administered on 12/25/16 20:46; Admin Dose 12.5 MG; Start 12/25/16 at 09:00 Terazosin HCl 5 mg 5 mg Q12 GTB Last administered on 12/25/16 21:00; Admin Dose 5 MG; Start 12/25/16 at 09:00 Ferric Sodium Gluconate Complex 125 mg/Sodium Chloride 110 ml @ 100 mls/hr Q24H IVPB Last administered on 12/25/16 14:14; Admin Dose 100 MLS/HR; Start 12/25/16 at 13:00; Stop 12/27/16 at 14:05 Dextrose/Sodium Chloride (D5-1/2ns) 1,000 ml @ 50 mls/hr Q20H IV Last administered on 12/25/16 12:55; Admin Dose 50 MLS/HR; Start 12/25/16 at 12:00 Famotidine 20 mg 20 mg DAILY IV ; Start 12/26/16 at 09:00 Pantoprazole/ Sodium Chloride (Protonix Iv/NS) 100 ml @ 10 mls/hr Q10H IV Last administered on 12/26/16 03:18; Admin Dose 10 MLS/HR; Start 12/25/16 at 16: 00 Atorvastatin Calcium (Lipitor) 5 mg QHS GTB Last administered on 12/25/16 20:45 ; Admin Dose 5 MG; Start 12/25/16 at 21:00 Bethanechol Chloride (Urecholine) 50 mg QID GTB Last administered on 12/25/16 20:57; Admin Dose 50 MG; Start 12/25/16 at 21:00 Duloxetine HCl (Cymbalta) 60 mg DAILY GTB ; Start 12/26/16 at 09:00 Lactobacillus Acidoph/Bulgaricus (Floranex) 1 tab DAILY GTB ; Start 12/26/16 at 09:00 Magnesium Oxide (Mag-Ox 400) 400 mg Q12 GTB Last administered on 12/25/16 21:00 ; Admin Dose 400 MG; Start 12/25/16 at 21:00 Multivitamins Therapeutic (Theragran) 1 tab DAILY GTB ; Start 12/26/16 at 09:00 Senna (Senokot) 1 tab BID GTB Last administered on 12/25/16 20:58; Admin Dose 1 TAB; Start 12/25/16 at 21:00 Docusate Sodium 100 mg 100 mg Q12 GTB Last administered on 12/25/16 20:58; Admin Dose 100 MG; Start 12/25/16 at 21:00 Potassium Chloride (KCl 40 MEQ/250 ML NS) 250 ml @ 62.5 mls/hr ONCE ONCE IVPB Last administered on 12/26/16 05:53; Admin Dose 62.5 MLS/HR; Start 12/26/16 at 06:00; Stop 12/26/16 at 09:59 WEI ESCALERA Dec 26, 2016 07:46
[2016-12-26] MEDS: DULOXETINE 30 MG CAP DR GTB SCH (08:17)
[2016-12-26] MEDS: DOCUSATE SODIUM 10 MG/ML (10ML CUP) GTB SCH ×2 (08:18→21:11)
[2016-12-26] MEDS: TERAZOSIN 5 MG CAP GTB SCH ×2 (08:18→21:11)
[2016-12-26] MEDS: LACTOBACILLUS CHEW TAB GTB SCH (08:18)
[2016-12-26] MEDS: BETHANECHOL 25 MG TAB GTB SCH ×4 (08:18→21:11)
[2016-12-26] MEDS: HYDROCODONE/APAP (5/325) TAB PO PRN ×2 (08:18→23:50)
[2016-12-26] MEDS: MAGNESIUM OXIDE 400 MG TAB GTB SCH ×2 (08:18→21:12)
[2016-12-26] MEDS: FAMOTIDINE 20 MG INJ IV SCH (08:19)
[2016-12-26] MEDS: MULTIVITAMINS THERAPEUTIC TAB GTB SCH (08:19)
[2016-12-26] MEDS: LORAZEPAM 0.5 MG TAB PO PRN (08:19)
[2016-12-26] MEDS: AMIODARONE 200 MG TAB GTB SCH (08:19)
[2016-12-26] MEDS: METOPROLOL 25 MG TAB GTB SCH ×2 (08:19→21:11)
[2016-12-26] MEDS: LEVOFLOXACIN 750 MG TABLET GTB SCH (08:19)
[2016-12-26] MEDS: SENNA TAB GTB SCH ×2 (08:20→21:11)
[2016-12-26] MEDS ORDERED: FUROSEMIDE 20 MG INJ IV SCH (09:00)
[2016-12-26] MEDS: SOD FERRIC GLUC COMPLX 125 MG in SOD CHLORIDE 0.9% 100 ML IVPB SCH (12:01)
--- NOTE | 2016-12-26 12:28 | PN ---
Date/Time of Note Date/Time of Note DATE: 12/26/16 TIME: 12:21 Assessment/Plan VTE Prophylaxis VTE Prophylaxis Intervention: SCD's Lines/Catheters IV Catheter Type (from Nrsg): Peripheral IV Urinary Cath still in place: Yes Reason Cath still needed: other (indicate) Assessment/Plan Assessment/Plan 1. Chronic anemia, s/p 2 units PRBC transfusion, follow up with GI 2. Hx of endoscopy with duodenal perforation in the past that warranted complicated repair 3. COPD, stable 4. Chronic respiratory failure with Trach / Vent dependent, follow up with pulmonology 5. Hypothyroidism, on supplement 6. Dyslipidemia, on statin 7. Major depressive Disorder, stable 8. Hypokalemia, KCL, follow up with K Subjective 24 Hr Interval Summary Free Text/Dictation no respiratory distress. generalized body ache. no fever Exam/Review of Systems Vital Signs Vitals Vital Signs Date Time Temp Pulse Resp B/P Pulse Ox O2 Delivery O2 Flow Rate FiO2 12/26/16 12:03 61 98/49 12/26/16 12:00 98.5 18 96 Mechanical Ventilator 12/26/16 09:58 30 Intake and Output 12/25/16 12/25/16 12/26/16 15:00 23:00 07:00 Intake Total 150 ml 420 ml 1030 ml Output Total 1250 ml 2125 ml 610 ml Balance -1100 ml -1705 ml 420 ml Exam Constitutional: alert, oriented, well developed Head: atraumatic, normocephalic Eyes: EOMI, PERRL, nl conjunctiva, nl lids, nl sclera ENMT: nl external ears & nose, other (tracheostomy) Neck: non-tender, supple Respiratory: clear to auscultation, normal air movement, No congested cough, No crackles/rales, No diminished breath sounds, No intercostal retraction, No labored breathing, No respirations, No tactile fremitus, No wheezing Cardiovascular: nl pulses, regular rate and rhythm, No S3, No S4, No bruits, No diastolic murmur, No edema, No gallop, No irregular rhythm, No jugular venous distention (JVD), No murmurs/extra sounds, No rub, No systolic murmur Gastrointestinal: nl liver, spleen, non-tender, soft, No ascites, No bowel sounds, No distended, No firm, No hepatomegaly, No mass , No rebound or guarding, No splenomegaly, No surgical scars, No tender Musculoskeletal: nl extremities to inspection Extremities: normal pulses, No calf tenderness, No clubbing, No cyanosis, No edema, No palpable cord, No pitting pedal edema, No tenderness 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: 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, nl mental status, nl strength Skin: nl turgor, rash or lesions Lymph: nl lymph nodes Results Result Diagram: 12/26/16 0510 12/26/16 0510 Results 24 hrs Laboratory Tests Test 12/26/16 05:10 Albumin 2.6 L Anion Gap 12 Basophils # 0.0 Basophils % 0.5 Blood Morphology Comment Blood Urea Nitrogen 19 Calcium Level 8.5 Carbon Dioxide Level 37 H Chloride Level 92 L Creatinine 0.53 Eosinophils # 0.0 Eosinophils % 0.7 Glucose Level 117 # Hematocrit 29.6 L Hemoglobin 10.0 L Lymphocytes # 1.1 Lymphocytes % 14.2 L Magnesium Level 1.5 L Mean Corpuscular Hemoglobin 28.8 L Mean Corpuscular Hemoglobin Concent 33.8 Mean Corpuscular Volume 85.3 Mean Platelet Volume 9.0 Monocytes # 0.9 Monocytes % 11.7 H Neutrophils # 5.5 Neutrophils % 72.9 Nucleated Red Blood Cells # 0.0 Nucleated Red Blood Cells % 0.0 Phosphorus Level 4.1 Platelet Count 260 Potassium Level 2.9 *L Red Blood Count 3.47 L Red Cell Distribution Width 17.1 H Sodium Level 138 Thyroid Stimulating Hormone (TSH) 5.880 H White Blood Count 7.6 Medications Medications Current Medications Acetaminophen/ Hydrocodone Bitart ([place] (5/325)) 1 tab Q6 PRN PO PAIN Last administered on 12/26/16 08:18; Admin Dose 1 TAB; Start 12/24/16 at 05:30 Lorazepam (Ativan) 0.5 mg Q6 PRN PO ANXIETY Last administered on 12/26/16 08:19 ; Admin Dose 0.5 MG; Start 12/24/16 at 05:30 Lorazepam (Ativan) 0.5 mg Q6H PRN IV ANXIETY Last administered on 12/25/16 21: 36; Admin Dose 0.5 MG; Start 12/24/16 at 07:30 Ondansetron HCl (Zofran Inj) 4 mg Q6H PRN IV NAUSEA AND/OR VOMITING; Start 12/24 at 07:30 Acetaminophen (Tylenol Supp) 650 mg Q6H PRN [place] PAIN LEVEL 1-3 OR FEVER; Start 12/24/16 at 07:30 Morphine Sulfate (morphine) 2 mg Q4H PRN IV PAIN LEVEL 7-10 Last administered on 12/26/16 11:57; Admin Dose 2 MG; Start 12/24/16 at 07:30 Levofloxacin (Levaquin) 750 mg DAILY GTB Last administered on 12/26/16 08:19; Admin Dose 750 MG; Start 12/24/16 at 14:30; Stop 12/26/16 at 14:29 Amiodarone HCl (Cordarone) 200 mg DAILY GTB Last administered on 12/26/16 08:19 ; Admin Dose 200 MG; Start 12/25/16 at 09:00 Clonidine (Catapres) 0.1 mg Q8 PRN GTB ELEVATED BLOOD PRESSURE>150; Start at 04:30 Metoprolol Tartrate (Lopressor) 12.5 mg BID GTB Last administered on 12/26/16 08:19; Admin Dose 12.5 MG; Start 12/25/16 at 09:00 Terazosin HCl 5 mg 5 mg Q12 GTB Last administered on 12/26/16 08:18; Admin Dose 5 MG; Start 12/25/16 at 09:00 Ferric Sodium Gluconate Complex 125 mg/Sodium Chloride 110 ml @ 100 mls/hr Q24H IVPB Last administered on 12/26/16 12:01; Admin Dose 100 MLS/HR; Start 12/25/16 at 13:00; Stop 12/27/16 at 14:05 Dextrose/Sodium Chloride (D5-1/2ns) 1,000 ml @ 50 mls/hr Q20H IV Last administered on 12/25/16 12:55; Admin Dose 50 MLS/HR; Start 12/25/16 at 12:00 Famotidine 20 mg 20 mg DAILY IV Last administered on 12/26/16 08:19; Admin Dose 20 MG; Start 12/26/16 at 09:00 Pantoprazole/ Sodium Chloride (Protonix Iv/NS) 100 ml @ 10 mls/hr Q10H IV Last administered on 12/26/16 11:56; Admin Dose 10 MLS/HR; Start 12/25/16 at 16: 00 Atorvastatin Calcium (Lipitor) 5 mg QHS GTB Last administered on 12/25/16 20:45 ; Admin Dose 5 MG; Start 12/25/16 at 21:00 Bethanechol Chloride (Urecholine) 50 mg QID GTB Last administered on 12/26/16 12:01; Admin Dose 50 MG; Start 12/25/16 at 21:00 Duloxetine HCl (Cymbalta) 60 mg DAILY GTB Last administered on 12/26/16 08:17; Admin Dose 60 MG; Start 12/26/16 at 09:00 Lactobacillus Acidoph/Bulgaricus (Floranex) 1 tab DAILY GTB Last administered on 12/26/16 08:18; Admin Dose 1 TAB; Start 12/26/16 at 09:00 Magnesium Oxide (Mag-Ox 400) 400 mg Q12 GTB Last administered on 12/26/16 08:18 ; Admin Dose 400 MG; Start 12/25/16 at 21:00 Multivitamins Therapeutic (Theragran) 1 tab DAILY GTB Last administered on 08:19; Admin Dose 1 TAB; Start 12/26/16 at 09:00 Senna (Senokot) 1 tab BID GTB Last administered on 12/26/16 08:20; Admin Dose 1 TAB; Start 12/25/16 at 21:00 Docusate Sodium (Colace Liquid Cup) 100 mg Q12 GTB Last administered on 08:18; Admin Dose 100 MG; Start 12/25/16 at 21:00 ALETHA JULIO MD Dec 26, 2016 12:28
[2016-12-26] MEDS: DEXTROSE 5%-0.45% NACL 1,000 ML IV SCH (15:14)
[2016-12-26] MEDS ORDERED: MAGNESIUM SULFATE 2 GM/50 ML 50 ML IVPB ONE (16:30)
--- NOTE | 2016-12-26 17:16 | RADRPT ---
PROCEDURE: CT abdomen and pelvis without IV contrast. CLINICAL INDICATION: Abdominal pain TECHNIQUE: CT scan of the abdomen and pelvis without contrast was performed on the GE volumetric [address] scanner. The patient was scanned without intravenous contrast. Coronal and sagittal refo rmatted images were obtained from the axial source images. The CTDI vol is 7.66 mGy and the DLP is 4 16.87 mGy-cm. COMPARISON: None. FINDINGS: CT abdomen: A small right pleural effusion is seen with mild to moderate size left pleural effusion with bilater al lower lobe consolidation. The heart size is not enlarged and is without pericardial thickening or effusion. Mitral annular calcifications are seen. Aortic and coronary vascular calcifications are seen. The liver is normal in size and density and is without focal mass. The spleen is normal in size an d homogeneous in density. A gastrostomy tube is identified in the gastric lumen. The stomach is othe rwise grossly unremarkable. The pancreas as visualized is normal. The gallbladder has been removed . Pneumobilia is identified. The adrenal glands are symmetric and normal. The kidneys are symmetr ically unremarkable as well. Mild fullness in the right collecting system is seen. A left collectin g system is normal. No renal calculus or mass lesion is seen. Aortic calcifications are seen. The abdominal aorta is ectatic measuring 3 cm in size in maximal daryl meter. There is no retroperitoneal lymphadenopathy. The ned hepatis region is clear. A ventral h ernia is seen containing segments of small bowel without evidence of obstruction. The large bowel is stool-filled. The small and large bowel and mesentery, as visualized, are otherwise unremarkable. No inflammatory changes in the periappendiceal region is seen. CT pelvis: The uterus is absent. The pelvic sidewalls and inguinal regions are clear. No pelvic mass, lymphad enopathy, or free fluid is seen. No acute inflammation is seen. The urinary bladder is decompresse d by Javier catheter.. Diffuse osteopenia is seen. A left hip arthroplasty is seen. No osteolytic or osteoblastic lesion is detected. IMPRESSION: 1. Mild to moderate size left pleural effusion and small right pleural effusion with bilateral lowe r lobe consolidation. 2. Stool filled large bowel. 3. Ventral hernia in the pelvis containing segments of small bowel without evidence of obstruction. 4. Status post cholecystectomy with pneumobilia which may be secondary to a prior ERCP. 5. Ectatic abdominal aorta. 6. Gastrostomy tube and Javier catheter identified. RPTAT: HPNM Maged Sim Physician Date Time Electronically viewed and signed by Maged Sim, Physician on 12/26/2016 17:09 /
[2016-12-26] MEDS: LORAZEPAM 2 MG INJ IV PRN (19:37)
[2016-12-26] MEDS: ATORVASTATIN 10 MG TAB GTB SCH (21:12)
[2016-12-27] VITALS (44 sets, daily range): BP systolic 87–148; BP diastolic 43–70; PULSE 60–80; RESP 16–29
[2016-12-27] MEDS: LORAZEPAM 0.5 MG TAB PO PRN ×2 (01:04→05:28)
[2016-12-27] MEDS: IPRATROPIUM (HFA) 12.9 GM INHALER INH SCH ×6 (01:20→20:25)
[2016-12-27] MEDS: ALBUTEROL HFA 8 GM INHALER INH SCH ×6 (01:20→20:25)
[2016-12-27] MEDS: PANTOPRAZOLE IV 80 MG in SOD CHLORIDE 0.9% 100 ML IV SCH ×2 (02:16→14:27)
[2016-12-27] MEDS: DEXTROSE 5%-0.45% NACL 1,000 ML IV SCH ×3 (04:00→20:49)
[2016-12-27] MEDS: FUROSEMIDE 40 MG INJ IV SCH ×2 (06:20→19:30)
[2016-12-27 06:48] LABS: BASOPHILS % 0.2 % (0.0-2.0); EOSINOPHILS # 0.1 10^3/ul (0.0-0.5); HEMATOCRIT 28.9 % (37.0-47.0); HEMOGLOBIN 9.8 g/dl (12.0-16.0); LYMPHOCYTES % 11.3 % (15.0-51.0); MEAN CORPUSCULAR HGB CONC 33.9 g/dl (32.0-37.0); MEAN CORPUSCULAR VOLUME 85.5 fl (82.0-101.0); MEAN PLATELET VOLUME 8.9 fl (7.4-10.4); MONOCYTES % 11.5 % (0.0-11.0); NEUTROPHIL # 6.9 10^3/ul (1.6-7.5); PLATELET COUNT 271 10^3/UL (140-440); RED BLOOD COUNT 3.39 10^6/ul (4.20-5.40); RED CELL DISTRIBUTION WIDTH 16.9 % (11.5-14.5)
[2016-12-27 06:49] LABS: CREATININE 0.55 mg/dl (0.44-1.00)
[2016-12-27 06:50] LABS: ALBUMIN 2.5 g/dl (3.3-4.9); CALCIUM 8.4 mg/dl (8.4-10.2); MAGNESIUM 1.8 mg/dl (1.7-2.5); POTASSIUM 3.1 mmol/L (3.5-5.1)
[2016-12-27 06:52] LABS: POTASSIUM 2.8 mmol/L (3.5-5.1)
[2016-12-27 06:53] LABS: CREATININE 0.52 mg/dl (0.44-1.00)
[2016-12-27 06:54] LABS: CALCIUM 8.6 mg/dl (8.4-10.2); PHOSPHORUS 3.3 mg/dl (2.5-4.9)
[2016-12-27] MEDS ORDERED: POTASSIUM CHLORIDE (SR) 20 MEQ TAB PO STA ×2 (07:05→10:59)
[2016-12-27 07:23] LABS: CONDITION 1; LH ANALYZER COMMENTS 1
[2016-12-27] MEDS ORDERED: MAGNESIUM SULFATE 1 GM/D5W 100 ML IVPB ONE (07:30)
--- NOTE | 2016-12-27 07:34 | CONS ---
Date/Time of Note Date/Time of Note DATE: 12/27/16 TIME: 07:31 Assessment/Plan Assessment/Plan Additional Assessment/Plan Current ventilator settings; assist control of 12, tidal volume 400, PEEP of 5, 30% FiO2. Assessment and recommendations; 1. Chronic respiratory failure, ventilator dependent. 2. Patient admitted for anemia. No obvious source of bleeding. 3. Underlying severe COPD. Next 4. Anxiety. Next Continue current treatment. Patient will likely undergo EGD for evaluation of anemia. Meanwhile continue current medications. Ventilator settings. Patient will be given Ativan for anxiety. Consultation Date/Type/Reason Admit Date/Time Dec 24, 2016 at 01:03 Type of Consultation: Pulmonary/critical care 24 HR Interval Summary Free Text/Dictation Patient condition is stable. Still is on mechanical ventilation via tracheostomy. Patient is awake, alert but complaining of shortness of breath. General examination; elderly lady, on mechanical ventilation. Awake and alert. Exam/Review of Systems Vital Signs Vitals Vital Signs Date Time Temp Pulse Resp B/P Pulse Ox O2 Delivery O2 Flow Rate FiO2 12/27/16 06:00 71 22 122/58 93 Mechanical Ventilator 12/27/16 05:31 30 12/27/16 04:00 96.5 Intake and Output 12/26/16 12/26/16 12/27/16 15:00 23:00 07:00 Intake Total 1200 ml 797.5 ml Output Total 1920 ml 210 ml Balance -720 ml 587.5 ml Exam HEENT examination; supple neck, no JVD. Tracheostomy in place with clean insertion site. Pupils are midsize reactive to light bilaterally and equally. Patient is edentulous and wears dentures. No lymphadenopathy. Chest examination; diminished breath sounds throughout. S1-S2 audible no murmurs. Regular rate and rhythm. Abdomen examination; scaphoid, no organomegaly, nontender. Bowel sounds audible. G-tube in place. Extremity examination; no peripheral edema. 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 Results Result Diagram: 12/27/16 0556 12/27/16 0556 Results 24 hrs Laboratory Tests Test 12/26/16 18:20 12/27/16 05:56 Stool Occult Blood NEGATIVE Albumin 2.5 L Anion Gap 12 Basophils # 0.0 Basophils % 0.2 Blood Morphology Comment Blood Urea Nitrogen 15 Calcium Level 8.4 Carbon Dioxide Level 35 H Chloride Level 94 L Creatinine 0.55 Eosinophils # 0.1 Eosinophils % 1.0 Glucose Level 128 Hematocrit 28.9 L Hemoglobin 9.8 L Lymphocytes # 1.0 Lymphocytes % 11.3 L Magnesium Level 1.8 Mean Corpuscular Hemoglobin 29.0 Mean Corpuscular Hemoglobin Concent 33.9 Mean Corpuscular Volume 85.5 Mean Platelet Volume 8.9 Monocytes # 1.0 H Monocytes % 11.5 H Neutrophils # 6.9 Neutrophils % 76.0 Nucleated Red Blood Cells # 0.0 Nucleated Red Blood Cells % 0.0 Phosphorus Level 3.3 Platelet Count 271 Potassium Level 2.8 *L Red Blood Count 3.39 L Red Cell Distribution Width 16.9 H Sodium Level 138 White Blood Count 9.0 Medications Medications Current Medications Acetaminophen/ Hydrocodone Bitart ([place] (5/325)) 1 tab Q6 PRN PO PAIN Last administered on 12/26/16 23:50; Admin Dose 1 TAB; Start 12/24/16 at 05:30 Lorazepam (Ativan) 0.5 mg Q6 PRN PO ANXIETY Last administered on 12/27/16 05:28 ; Admin Dose 0.5 MG; Start 12/24/16 at 05:30 Lorazepam (Ativan) 0.5 mg Q6H PRN IV ANXIETY Last administered on 12/26/16 19: 37; Admin Dose 0.5 MG; Start 12/24/16 at 07:30 Ondansetron HCl (Zofran Inj) 4 mg Q6H PRN IV NAUSEA AND/OR VOMITING; Start 12/24 at 07:30 Acetaminophen (Tylenol Supp) 650 mg Q6H PRN [place] PAIN LEVEL 1-3 OR FEVER; Start 12/24/16 at 07:30 Morphine Sulfate (morphine) 2 mg Q4H PRN IV PAIN LEVEL 7-10 Last administered on 12/26/16 18:05; Admin Dose 2 MG; Start 12/24/16 at 07:30 Amiodarone HCl (Cordarone) 200 mg DAILY GTB Last administered on 12/26/16 08:19 ; Admin Dose 200 MG; Start 12/25/16 at 09:00 Clonidine (Catapres) 0.1 mg Q8 PRN GTB ELEVATED BLOOD PRESSURE>150; Start at 04:30 Metoprolol Tartrate (Lopressor) 12.5 mg BID GTB Last administered on 12/26/16 21:11; Admin Dose 12.5 MG; Start 12/25/16 at 09:00 Terazosin HCl 5 mg 5 mg Q12 GTB Last administered on 12/26/16 21:11; Admin Dose 5 MG; Start 12/25/16 at 09:00 Ferric Sodium Gluconate Complex 125 mg/Sodium Chloride 110 ml @ 100 mls/hr Q24H IVPB Last administered on 12/26/16 12:01; Admin Dose 100 MLS/HR; Start 12/25/16 at 13:00; Stop 12/27/16 at 14:05 Dextrose/Sodium Chloride (D5-1/2ns) 1,000 ml @ 50 mls/hr Q20H IV Last administered on 12/26/16 15:14; Admin Dose 50 MLS/HR; Start 12/25/16 at 12:00 Famotidine 20 mg 20 mg DAILY IV Last administered on 12/26/16 08:19; Admin Dose 20 MG; Start 12/26/16 at 09:00 Pantoprazole/ Sodium Chloride (Protonix Iv/NS) 100 ml @ 10 mls/hr Q10H IV Last administered on 12/27/16 02:16; Admin Dose 10 MLS/HR; Start 12/25/16 at 16: 00 Atorvastatin Calcium (Lipitor) 5 mg QHS GTB Last administered on 12/26/16 21:12 ; Admin Dose 5 MG; Start 12/25/16 at 21:00 Bethanechol Chloride (Urecholine) 50 mg QID GTB Last administered on 12/26/16 21:11; Admin Dose 50 MG; Start 12/25/16 at 21:00 Duloxetine HCl (Cymbalta) 60 mg DAILY GTB Last administered on 12/26/16 08:17; Admin Dose 60 MG; Start 12/26/16 at 09:00 Lactobacillus Acidoph/Bulgaricus (Floranex) 1 tab DAILY GTB Last administered on 12/26/16 08:18; Admin Dose 1 TAB; Start 12/26/16 at 09:00 Magnesium Oxide (Mag-Ox 400) 400 mg Q12 GTB Last administered on 12/26/16 21:12 ; Admin Dose 400 MG; Start 12/25/16 at 21:00 Multivitamins Therapeutic (Theragran) 1 tab DAILY GTB Last administered on 08:19; Admin Dose 1 TAB; Start 12/26/16 at 09:00 Senna (Senokot) 1 tab BID GTB Last administered on 12/26/16 21:11; Admin Dose 1 TAB; Start 12/25/16 at 21:00 Docusate Sodium 100 mg 100 mg Q12 GTB Last administered on 12/26/16 21:11; Admin Dose 100 MG; Start 12/25/16 at 21:00 Magnesium Sulfate/ Dextrose 100 ml @ 100 mls/hr ONCE ONCE IVPB ; Start at 07:30; Stop 12/27/16 at 08:29 Potassium Chloride (KCl 40 MEQ/250 ML NS) 250 ml @ 62.5 mls/hr Q4H IVPB ; Start 12/27/16 at 08:30; Stop 12/27/16 at 16:29 WEI ESCALERA Dec 27, 2016 07:34
[2016-12-27] MEDS: DULOXETINE 30 MG CAP DR GTB SCH (08:21)
[2016-12-27] MEDS: LEVOTHYROXINE 75 MCG TAB PO SCH (08:21)
[2016-12-27] MEDS: MULTIVITAMINS THERAPEUTIC TAB GTB SCH (08:21)
[2016-12-27] MEDS: SENNA TAB GTB SCH ×2 (08:22→20:47)
[2016-12-27] MEDS: TERAZOSIN 5 MG CAP GTB SCH ×2 (08:22→21:00)
[2016-12-27] MEDS: AMIODARONE 200 MG TAB GTB SCH (08:22)
[2016-12-27] MEDS: MAGNESIUM OXIDE 400 MG TAB GTB SCH ×2 (08:23→20:46)
[2016-12-27] MEDS: BETHANECHOL 25 MG TAB GTB SCH ×4 (08:23→20:46)
[2016-12-27] MEDS: HYDROCODONE/APAP (5/325) TAB PO PRN ×2 (08:23→15:40)
[2016-12-27] MEDS: FAMOTIDINE 20 MG INJ IV SCH (08:24)
[2016-12-27] MEDS: DOCUSATE SODIUM 10 MG/ML (10ML CUP) GTB SCH ×2 (08:24→22:08)
[2016-12-27] MEDS: LACTOBACILLUS CHEW TAB GTB SCH (08:24)
[2016-12-27] MEDS ORDERED: POTASSIUM CHLORIDE 250 ML IVPB SCH (08:30)
[2016-12-27] MEDS: METOPROLOL 25 MG TAB GTB SCH ×2 (09:38→21:00)
--- NOTE | 2016-12-27 11:08 | PN ---
Date/Time of Note Date/Time of Note DATE: 12/27/16 TIME: 11:02 Assessment/Plan VTE Prophylaxis VTE Prophylaxis Intervention: SCD's Lines/Catheters IV Catheter Type (from Nrsg): Peripheral IV Urinary Cath still in place: Yes Reason Cath still needed: other (indicate) Assessment/Plan Assessment/Plan 1. Hypokalemia, KCL, follow up with K 2. Chronic anemia, s/p 2 units PRBC transfusion, stable, follow up with GI 3. COPD, stable 4. Chronic respiratory failure with Trach / Vent dependent, follow up with pulmonology 5. Hypothyroidism, on supplement 6. Dyslipidemia, on statin 7. Major depressive Disorder, stable 8. Hx of endoscopy with duodenal perforation in the past that warranted complicated repair Subjective 24 Hr Interval Summary Free Text/Dictation no shortness of breath afebrile Exam/Review of Systems Vital Signs Vitals Vital Signs Date Time Temp Pulse Resp B/P Pulse Ox O2 Delivery O2 Flow Rate FiO2 12/27/16 10:11 86 20 96 30 12/27/16 08:00 96.7 108/67 Mechanical Ventilator Intake and Output 12/26/16 12/26/16 12/27/16 15:00 23:00 07:00 Intake Total 1200 ml 857.5 ml Output Total 1920 ml 210 ml Balance -720 ml 647.5 ml Exam Constitutional: alert, oriented, well developed Psych: nl mood/affect, no complaints Head: atraumatic, normocephalic Eyes: EOMI, PERRL, nl conjunctiva ENMT: nl external ears & nose, nl lips & teeth, nl nasal mucosa & septum, other (trach) Neck: non-tender, other (tracheostomy), supple Respiratory: clear to auscultation, normal air movement, other, No congested cough, No crackles/rales, No diminished breath sounds, No intercostal retraction, No labored breathing, No respirations, No tactile fremitus, No wheezing Cardiovascular: nl pulses, regular rate and rhythm, No S3, No S4, No bruits, No diastolic murmur, No edema, No gallop, No irregular rhythm, No jugular venous distention (JVD), No murmurs/extra sounds, No rub, No systolic murmur Gastrointestinal: nl liver, spleen, non-tender, soft, No ascites, No bowel sounds, No distended, No firm, No hepatomegaly, No mass , No rebound or guarding, No splenomegaly, No surgical scars, No tender Musculoskeletal: nl extremities to inspection 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: ALIGNER BARREL AND RECEIVER II-XII intact, nl mental status, nl speech, nl strength, other, No DTR's symmetric, No confused, No focal weakness, No lethargic, No numbness , No reflexes, No unresponsive Skin: nl turgor, rash or lesions Lymph: nl lymph nodes Results Result Diagram: 12/27/1656 12/27/1656 Results 24 hrs Laboratory Tests Test 12/26/16 18:20 12/27/16 05:56 Stool Occult Blood NEGATIVE Albumin 2.5 L Anion Gap 12 Basophils # 0.0 Basophils % 0.2 Blood Morphology Comment Blood Urea Nitrogen 15 Calcium Level 8.4 Carbon Dioxide Level 35 H Chloride Level 94 L Creatinine 0.55 Eosinophils # 0.1 Eosinophils % 1.0 Glucose Level 128 Hematocrit 28.9 L Hemoglobin 9.8 L Lymphocytes # 1.0 Lymphocytes % 11.3 L Magnesium Level 1.8 Mean Corpuscular Hemoglobin 29.0 Mean Corpuscular Hemoglobin Concent 33.9 Mean Corpuscular Volume 85.5 Mean Platelet Volume 8.9 Monocytes # 1.0 H Monocytes % 11.5 H Neutrophils # 6.9 Neutrophils % 76.0 Nucleated Red Blood Cells # 0.0 Nucleated Red Blood Cells % 0.0 Phosphorus Level 3.3 Platelet Count 271 Potassium Level 2.8 *L Red Blood Count 3.39 L Red Cell Distribution Width 16.9 H Sodium Level 138 White Blood Count 9.0 Medications Medications Current Medications Acetaminophen/ Hydrocodone Bitart ([place] (5/325)) 1 tab Q6 PRN PO PAIN Last administered on 12/27/16 08:23; Admin Dose 1 TAB; Start 12/24/16 at 05:30 Lorazepam (Ativan) 0.5 mg Q6 PRN PO ANXIETY Last administered on 12/27/16 05:28 ; Admin Dose 0.5 MG; Start 12/24/16 at 05:30 Lorazepam (Ativan) 0.5 mg Q6H PRN IV ANXIETY Last administered on 12/26/16 19: 37; Admin Dose 0.5 MG; Start 12/24/16 at 07:30 Ondansetron HCl (Zofran Inj) 4 mg Q6H PRN IV NAUSEA AND/OR VOMITING; Start 12/24 at 07:30 Acetaminophen (Tylenol Supp) 650 mg Q6H PRN ME PAIN LEVEL 1-3 OR FEVER; Start 12/24/16 at 07:30 Morphine Sulfate (morphine) 2 mg Q4H PRN IV PAIN LEVEL 7-10 Last administered on 12/26/16 18:05; Admin Dose 2 MG; Start 12/24/16 at 07:30 Amiodarone HCl (Cordarone) 200 mg DAILY GTB Last administered on 12/27/16 08:22 ; Admin Dose 200 MG; Start 12/25/16 at 09:00 Clonidine (Catapres) 0.1 mg Q8 PRN GTB ELEVATED BLOOD PRESSURE>150; Start at 04:30 Metoprolol Tartrate (Lopressor) 12.5 mg BID GTB Last administered on 12/27/16 09:38; Admin Dose 12.5 MG; Start 12/25/16 at 09:00 Terazosin HCl 5 mg 5 mg Q12 GTB Last administered on 12/27/16 08:22; Admin Dose 5 MG; Start 12/25/16 at 09:00 Ferric Sodium Gluconate Complex 125 mg/Sodium Chloride 110 ml @ 100 mls/hr Q24H IVPB Last administered on 12/26/16 12:01; Admin Dose 100 MLS/HR; Start 12/25/16 at 13:00; Stop 12/27/16 at 14:05 Dextrose/Sodium Chloride (D5-1/2ns) 1,000 ml @ 50 mls/hr Q20H IV Last administered on 12/26/16 15:14; Admin Dose 50 MLS/HR; Start 12/25/16 at 12:00 Famotidine 20 mg 20 mg DAILY IV Last administered on 12/27/16 08:24; Admin Dose 20 MG; Start 12/26/16 at 09:00 Pantoprazole/ Sodium Chloride (Protonix Iv/NS) 100 ml @ 10 mls/hr Q10H IV Last administered on 12/27/16 02:16; Admin Dose 10 MLS/HR; Start 12/25/16 at 16: 00 Atorvastatin Calcium (Lipitor) 5 mg QHS GTB Last administered on 12/26/16 21:12 ; Admin Dose 5 MG; Start 12/25/16 at 21:00 Bethanechol Chloride (Urecholine) 50 mg QID GTB Last administered on 12/27/16 08:23; Admin Dose 50 MG; Start 12/25/16 at 21:00 Duloxetine HCl (Cymbalta) 60 mg DAILY GTB Last administered on 12/27/16 08:21; Admin Dose 60 MG; Start 12/26/16 at 09:00 Lactobacillus Acidoph/Bulgaricus (Floranex) 1 tab DAILY GTB Last administered on 12/27/16 08:24; Admin Dose 1 TAB; Start 12/26/16 at 09:00 Magnesium Oxide (Mag-Ox 400) 400 mg Q12 GTB Last administered on 12/27/16 08:23 ; Admin Dose 400 MG; Start 12/25/16 at 21:00 Multivitamins Therapeutic (Theragran) 1 tab DAILY GTB Last administered on 08:21; Admin Dose 1 TAB; Start 12/26/16 at 09:00 Senna (Senokot) 1 tab BID GTB Last administered on 12/27/16 08:22; Admin Dose 1 TAB; Start 12/25/16 at 21:00 Docusate Sodium 100 mg 100 mg Q12 GTB Last administered on 12/27/16 08:24; Admin Dose 100 MG; Start 12/25/16 at 21:00 Potassium Chloride (KCl 40 MEQ/250 ML NS) 250 ml @ 62.5 mls/hr Q4H IVPB Last administered on 12/27/16 09:39; Admin Dose 62.5 MLS/HR; Start 12/27/16 at 08:30; Stop 12/27/16 at 16:29 ALETHA JULIO MD Dec 27, 2016 11:08
--- NOTE | 2016-12-27 11:31 | RADRPT ---
PROCEDURE: XR Chest. CLINICAL INDICATION: Dyspnea TECHNIQUE: Single frontal chest x-ray. COMPARISON: 12/23/[address] abdomen 12/26/2016 FINDINGS: The tracheostomy is in place. There are small bilateral pleural effusions with adjacent air space d isease. There is mild cardiomegaly. There is aortic atherosclerosis. Diffuse increase interstitial markings are again noted. The lungs are hyperinflated. The osseous structures are intact. IMPRESSION: 1. No significant interval change in small to moderate bilateral pleural effusions with adjacent air space disease. 2. Cardiomegaly. Aortic atherosclerosis. 3. Diffuse increase interstitial markings likely representing pulmonary edema versus pneumonitis in the background of emphysema. RPTAT: BB .Radha Mccall MD, MD Date Time Electronically viewed and signed by .Radha Mccall MD, on 12/27/2016 11:31 .O/
[2016-12-27] MEDS: SOD FERRIC GLUC COMPLX 125 MG in SOD CHLORIDE 0.9% 100 ML IVPB SCH (12:03)
[2016-12-27] MEDS: POTASSIUM CHLORIDE 20 MEQ POWDER FOR ORAL SOLN GTB SCH ×2 (12:03→14:27)
[2016-12-27] MEDS: morphine 2 MG INJ IV PRN (20:12)
[2016-12-27] MEDS: ATORVASTATIN 10 MG TAB GTB SCH (20:46)
[2016-12-27] MEDS: MUPIROCIN 2% 22 GM OINT TOP SCH (22:02)
[2016-12-28] VITALS (19 sets, daily range): BP systolic 117–130; BP diastolic 55–64; PULSE 63–75; RESP 16–24
[2016-12-28] MEDS: LORAZEPAM 2 MG INJ IV PRN ×2 (01:03→15:59)
[2016-12-28] MEDS: IPRATROPIUM (HFA) 12.9 GM INHALER INH SCH ×4 (01:27→13:24)
[2016-12-28] MEDS: ALBUTEROL HFA 8 GM INHALER INH SCH ×4 (01:27→13:24)
[2016-12-28] MEDS: LEVOTHYROXINE 75 MCG TAB PO SCH (06:00)
[2016-12-28] MEDS: FUROSEMIDE 40 MG INJ IV SCH ×2 (06:00→17:57)
[2016-12-28] MEDS: PANTOPRAZOLE 40 MG INJ IV SCH ×2 (06:00→18:44)
[2016-12-28] MEDS: morphine 2 MG INJ IV PRN ×3 (08:15→17:53)
[2016-12-28] MEDS: DULOXETINE 30 MG CAP DR GTB SCH (08:18)
[2016-12-28] MEDS: MAGNESIUM OXIDE 400 MG TAB GTB SCH (08:18)
[2016-12-28] MEDS: LACTOBACILLUS CHEW TAB GTB SCH (08:18)
[2016-12-28] MEDS: MULTIVITAMINS THERAPEUTIC TAB GTB SCH (08:19)
[2016-12-28] MEDS: METOPROLOL 25 MG TAB GTB SCH (08:19)
[2016-12-28] MEDS: AMIODARONE 200 MG TAB GTB SCH (08:19)
[2016-12-28] MEDS: SENNA TAB GTB SCH (08:19)
[2016-12-28] MEDS: DOCUSATE SODIUM 10 MG/ML (10ML CUP) GTB SCH (08:19)
[2016-12-28] MEDS: TERAZOSIN 5 MG CAP GTB SCH (08:20)
[2016-12-28] MEDS: BETHANECHOL 25 MG TAB GTB SCH ×3 (08:22→17:57)
[2016-12-28] MEDS: MUPIROCIN 2% 22 GM OINT TOP SCH ×2 (08:22→12:22)
[2016-12-28 09:55] LABS: BASOPHILS % 0.4 % (0.0-2.0); EOSINOPHILS # 0.1 10^3/ul (0.0-0.5); HEMATOCRIT 30.4 % (37.0-47.0); LYMPHOCYTES # 1.2 10^3/ul (0.8-2.9); LYMPHOCYTES % 13.3 % (15.0-51.0); MEAN CORPUSCULAR HEMOGLOBIN 28.3 pg (29.0-33.0); MEAN CORPUSCULAR VOLUME 85.9 fl (82.0-101.0); MEAN PLATELET VOLUME 8.7 fl (7.4-10.4); MONOCYTE # 1.1 10^3/ul (0.3-0.9); MONOCYTES % 12.4 % (0.0-11.0); NEUTROPHIL # 6.3 10^3/ul (1.6-7.5); NEUTROPHILS % 72.9 % (39.0-77.0); PLATELET COUNT 290 10^3/UL (140-440); RED BLOOD COUNT 3.54 10^6/ul (4.20-5.40); RED CELL DISTRIBUTION WIDTH 17.6 % (11.5-14.5); UNCORRECTED WBC 8.7 10^3/ul (4.8-10.8); WHITE BLOOD COUNT 8.7 10^3/ul (4.8-10.8)
[2016-12-28 10:06] LABS: CONDITION 1; LH ANALYZER COMMENTS 1
[2016-12-28 10:15] LABS: ALBUMIN 2.6 g/dl (3.3-4.9); POTASSIUM 3.1 mmol/L (3.5-5.1)
[2016-12-28 10:17] LABS: CREATININE 0.55 mg/dl (0.44-1.00)
[2016-12-28 10:18] LABS: CALCIUM 8.8 mg/dl (8.4-10.2)
--- NOTE | 2016-12-28 10:54 | CONS ---
Date/Time of Note Date/Time of Note DATE: 12/28/16 TIME: 10:52 Assessment/Plan Assessment/Plan Additional Assessment/Plan Assessment and recommendations; 1. Patient admitted for anemia status post blood transfusion with stable hematocrit now. 2. Chronic respiratory failure due to underlying severe COPD. Failure to be weaned from mechanical ventilation. 3. Hypertension. 4. Hypothyroidism. Continue current treatment. Consultation Date/Type/Reason Admit Date/Time Dec 24, 2016 at 01:03 Type of Consultation: Pulmonary/critical care 24 HR Interval Summary Free Text/Dictation Patient condition is stable. Has been transferred out of ICU to the telemetry unit. He is completely awake alert denies any shortness of breath. Any chest pain. General examination; elderly lady, on mechanical ventilation via tracheostomy currently in no distress awake and alert. Exam/Review of Systems Vital Signs Vitals Vital Signs Date Time Temp Pulse Resp B/P Pulse Ox O2 Delivery O2 Flow Rate FiO2 12/28/16 09:13 30 12/28/16 09:07 75 12/28/16 08:29 19 97 12/28/16 07:12 98.4 130/64 12/27/16 23:00 Mechanical Ventilator Intake and Output 12/27/16 12/27/16 12/28/16 15:00 23:00 07:00 Intake Total 500 ml 760 ml 500 ml Output Total 880 ml 1285 ml 600 ml Balance -380 ml -525 ml -100 ml Exam Current ventilator settings are assist control of 12, tidal volume 400, 30% FiO2 , PEEP of 5. HEENT examination; supple neck, no JVD. No lymphadenopathy. Tracheostomy in place with clean insertion site. Pupils are midsize reactive to light. Chest examination; diminished breath sounds bilaterally without any added sounds. S1-S2 audible. No murmurs. Regular rate and rhythm. Abdomen examination; soft, nontender. No organomegaly. G-tube in place. Bowel sounds audible. Extremity examination; no peripheral edema. CONCEPT ARTIST examination; no focal deficit. Results Result Diagram: 12/28/1692412/28/16924 Results 24 hrs Laboratory Tests Test 12/27/16 16:26 12/28/16 09:25 Potassium Level 4.8 # 3.1 L Albumin 2.6 L Anion Gap 12 Basophils # 0.0 Basophils % 0.4 Blood Morphology Comment Blood Urea Nitrogen 12 Calcium Level 8.8 Carbon Dioxide Level 35 H Chloride Level 94 L Creatinine 0.55 Eosinophils # 0.1 Eosinophils % 1.0 Glucose Level 125 Hematocrit 30.4 L Hemoglobin 10.0 L Lymphocytes # 1.2 Lymphocytes % 13.3 L Mean Corpuscular Hemoglobin 28.3 L Mean Corpuscular Hemoglobin Concent 33.0 Mean Corpuscular Volume 85.9 Mean Platelet Volume 8.7 Monocytes # 1.1 H Monocytes % 12.4 H Neutrophils # 6.3 Neutrophils % 72.9 Nucleated Red Blood Cells # 0.0 Nucleated Red Blood Cells % 0.0 Phosphorus Level 4.0 Platelet Count 290 Red Blood Count 3.54 L Red Cell Distribution Width 17.6 H Sodium Level 138 White Blood Count 8.7 Medications Medications Current Medications Acetaminophen/ Hydrocodone Bitart ([place] (5/325)) 1 tab Q6 PRN PO PAIN Last administered on 12/27/16 15:40; Admin Dose 1 TAB; Start 12/24/16 at 05:30 Lorazepam (Ativan) 0.5 mg Q6 PRN PO ANXIETY Last administered on 12/27/16 05:28 ; Admin Dose 0.5 MG; Start 12/24/16 at 05:30 Lorazepam (Ativan) 0.5 mg Q6H PRN IV ANXIETY Last administered on 12/28/16 01: 03; Admin Dose 0.5 MG; Start 12/24/16 at 07:30 Ondansetron HCl (Zofran Inj) 4 mg Q6H PRN IV NAUSEA AND/OR VOMITING; Start 12/24 at 07:30 Acetaminophen (Tylenol Supp) 650 mg Q6H PRN OR PAIN LEVEL 1-3 OR FEVER; Start 12/24/16 at 07:30 Morphine Sulfate (morphine) 2 mg Q4H PRN IV PAIN LEVEL 7-10 Last administered on 12/28/16 08:15; Admin Dose 2 MG; Start 12/24/16 at 07:30 Amiodarone HCl (Cordarone) 200 mg DAILY GTB Last administered on 12/28/16 08:19 ; Admin Dose 200 MG; Start 12/25/16 at 09:00 Clonidine (Catapres) 0.1 mg Q8 PRN GTB ELEVATED BLOOD PRESSURE>150; Start at 04:30 Metoprolol Tartrate (Lopressor) 12.5 mg BID GTB Last administered on 12/28/16 08:19; Admin Dose 12.5 MG; Start 12/25/16 at 09:00 Terazosin HCl 5 mg 5 mg Q12 GTB Last administered on 12/28/16 08:20; Admin Dose 5 MG; Start 12/25/16 at 09:00 Dextrose/Sodium Chloride (D5-1/2ns) 1,000 ml @ 50 mls/hr Q20H IV Last administered on 12/27/16 20:49; Admin Dose 50 MLS/HR; Start 12/25/16 at 12:00 Atorvastatin Calcium (Lipitor) 5 mg QHS GTB Last administered on 12/27/16 20:46 ; Admin Dose 5 MG; Start 12/25/16 at 21:00 Bethanechol Chloride (Urecholine) 50 mg QID GTB Last administered on 12/27/16 20:46; Admin Dose 50 MG; Start 12/25/16 at 21:00 Duloxetine HCl (Cymbalta) 60 mg DAILY GTB Last administered on 12/28/16 08:18; Admin Dose 60 MG; Start 12/26/16 at 09:00 Lactobacillus Acidoph/Bulgaricus (Floranex) 1 tab DAILY GTB Last administered on 12/28/16 08:18; Admin Dose 1 TAB; Start 12/26/16 at 09:00 Magnesium Oxide (Mag-Ox 400) 400 mg Q12 GTB Last administered on 12/28/16 08:18 ; Admin Dose 400 MG; Start 12/25/16 at 21:00 Multivitamins Therapeutic (Theragran) 1 tab DAILY GTB Last administered on 08:19; Admin Dose 1 TAB; Start 12/26/16 at 09:00 Senna (Senokot) 1 tab BID GTB Last administered on 12/28/16 08:19; Admin Dose 1 TAB; Start 12/25/16 at 21:00 Docusate Sodium (Colace Liquid Cup) 100 mg Q12 GTB Last administered on 08:19; Admin Dose 100 MG; Start 12/25/16 at 21:00 Mupirocin (Bactroban) 1 applic BID TOP Last administered on 12/27/16 22:02; Admin Dose 1 APPLIC; Start 12/27/16 at 21:00 Pantoprazole (Protonix Iv) 40 mg BID@,18 IV Last administered on 12/28/16t 06: 00; Admin Dose 40 MG; Start 12/28/16 at 06:00 WEI ESCALERA Dec 28, 2016 10:54
--- NOTE | 2016-12-28 11:23 | CONS ---
Date/Time of Note Date/Time of Note DATE: 12/28/16 TIME: 11:22 Assessment/Plan Assessment/Plan Chief Complaint/Hosp Course 76-year-old female presented to ED with anemia and hemoglobin of 7.8. Patient denies abdominal pain, nausea, vomiting, hematochezia, hematuria Problems: Additional Assessment/Plan Anemia * EGD 12-27-16: Mild esophagitis. Small hiatal hernia. Moderate gastritis, rule out H. pylori, biopsies obtained * Iron profile low, currently getting transfused * Stool OB, negative * Monitor hemoglobin every 6 hours, transfuse 2 units for hemoglobin less than 7.5 * PPI therapy Dysphagia * Monitor tube feeds every 6 hours, hold tube feeds for residual greater than 150 mL Tracheostomy dependent respiratory failure * Pulmonology following Further recommendations depend on clinical course Patient seen in collaboration with Dr. Alcocer Consultation Date/Type/Reason Admit Date/Time Dec 24, 2016 at 01:03 Type of Consultation: GI 24 HR Interval Summary Free Text/Dictation Hemoglobin stable Anemia likely secondary to iron deficiency We will advance tube feeds per nutrition recommendation Exam/Review of Systems Vital Signs Vitals Vital Signs Date Time Temp Pulse Resp B/P Pulse Ox O2 Delivery O2 Flow Rate FiO2 12/28/16 09:13 30 12/28/16 09:07 75 12/28/16 08:29 19 97 12/28/16 07:12 98.4 130/64 12/27/16 23:00 Mechanical Ventilator Intake and Output 12/27/16 12/27/16 12/28/16 15:00 23:00 07:00 Intake Total 500 ml 760 ml 500 ml Output Total 880 ml 1285 ml 600 ml Balance -380 ml -525 ml -100 ml Exam Constitutional: alert, oriented, other (Thin) Psych: nl mood/affect Head: atraumatic, normocephalic Eyes: EOMI, nl conjunctiva, nl lids, nl sclera ENMT: mucosa pink and moist, nl external ears & nose, nl lips & teeth, nl nasal mucosa & septum, other Cardiovascular: regular rate and rhythm Gastrointestinal: non-tender, soft Musculoskeletal: nl extremities to inspection 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: BENCH LAY OUT TECHNICIAN II-XII intact Results Result Diagram: 12/28/1692412/28/16924 Results 24 hrs Laboratory Tests Test 12/27/16 16:26 12/28/16 09:25 Potassium Level 4.8 # 3.1 L Albumin 2.6 L Anion Gap 12 Basophils # 0.0 Basophils % 0.4 Blood Morphology Comment Blood Urea Nitrogen 12 Calcium Level 8.8 Carbon Dioxide Level 35 H Chloride Level 94 L Creatinine 0.55 Eosinophils # 0.1 Eosinophils % 1.0 Glucose Level 125 Hematocrit 30.4 L Hemoglobin 10.0 L Lymphocytes # 1.2 Lymphocytes % 13.3 L Mean Corpuscular Hemoglobin 28.3 L Mean Corpuscular Hemoglobin Concent 33.0 Mean Corpuscular Volume 85.9 Mean Platelet Volume 8.7 Monocytes # 1.1 H Monocytes % 12.4 H Neutrophils # 6.3 Neutrophils % 72.9 Nucleated Red Blood Cells # 0.0 Nucleated Red Blood Cells % 0.0 Phosphorus Level 4.0 Platelet Count 290 Red Blood Count 3.54 L Red Cell Distribution Width 17.6 H Sodium Level 138 White Blood Count 8.7 Medications Medications Current Medications Acetaminophen/ Hydrocodone Bitart ([place] (5/325)) 1 tab Q6 PRN PO PAIN Last administered on 12/27/16 15:40; Admin Dose 1 TAB; Start 12/24/16 at 05:30 Lorazepam (Ativan) 0.5 mg Q6 PRN PO ANXIETY Last administered on 12/27/16 05:28 ; Admin Dose 0.5 MG; Start 12/24/16 at 05:30 Lorazepam (Ativan) 0.5 mg Q6H PRN IV ANXIETY Last administered on 12/28/16 01: 03; Admin Dose 0.5 MG; Start 12/24/16 at 07:30 Ondansetron HCl (Zofran Inj) 4 mg Q6H PRN IV NAUSEA AND/OR VOMITING; Start 12/24 at 07:30 Acetaminophen (Tylenol Supp) 650 mg Q6H PRN [place] PAIN LEVEL 1-3 OR FEVER; Start 12/24/16 at 07:30 Morphine Sulfate (morphine) 2 mg Q4H PRN IV PAIN LEVEL 7-10 Last administered on 12/28/16 08:15; Admin Dose 2 MG; Start 12/24/16 at 07:30 Amiodarone HCl (Cordarone) 200 mg DAILY GTB Last administered on 12/28/16 08:19 ; Admin Dose 200 MG; Start 12/25/16 at 09:00 Clonidine (Catapres) 0.1 mg Q8 PRN GTB ELEVATED BLOOD PRESSURE>150; Start at 04:30 Metoprolol Tartrate (Lopressor) 12.5 mg BID GTB Last administered on 12/28/16 08:19; Admin Dose 12.5 MG; Start 12/25/16 at 09:00 Terazosin HCl 5 mg 5 mg Q12 GTB Last administered on 12/28/16 08:20; Admin Dose 5 MG; Start 12/25/16 at 09:00 Dextrose/Sodium Chloride (D5-1/2ns) 1,000 ml @ 50 mls/hr Q20H IV Last administered on 12/27/16 20:49; Admin Dose 50 MLS/HR; Start 12/25/16 at 12:00 Atorvastatin Calcium (Lipitor) 5 mg QHS GTB Last administered on 12/27/16 20:46 ; Admin Dose 5 MG; Start 12/25/16 at 21:00 Bethanechol Chloride (Urecholine) 50 mg QID GTB Last administered on 12/27/16 20:46; Admin Dose 50 MG; Start 12/25/16 at 21:00 Duloxetine HCl (Cymbalta) 60 mg DAILY GTB Last administered on 12/28/16 08:18; Admin Dose 60 MG; Start 12/26/16 at 09:00 Lactobacillus Acidoph/Bulgaricus (Floranex) 1 tab DAILY GTB Last administered on 12/28/16 08:18; Admin Dose 1 TAB; Start 12/26/16 at 09:00 Magnesium Oxide (Mag-Ox 400) 400 mg Q12 GTB Last administered on 12/28/16 08:18 ; Admin Dose 400 MG; Start 12/25/16 at 21:00 Multivitamins Therapeutic (Theragran) 1 tab DAILY GTB Last administered on 08:19; Admin Dose 1 TAB; Start 12/26/16 at 09:00 Senna (Senokot) 1 tab BID GTB Last administered on 12/28/16 08:19; Admin Dose 1 TAB; Start 12/25/16 at 21:00 Docusate Sodium (Colace Liquid Cup) 100 mg Q12 GTB Last administered on 08:19; Admin Dose 100 MG; Start 12/25/16 at 21:00 Mupirocin (Bactroban) 1 applic BID TOP Last administered on 12/27/16 22:02; Admin Dose 1 APPLIC; Start 12/27/16 at 21:00 Pantoprazole (Protonix Iv) 40 mg BID@06,18 IV Last administered on 12/28/16 06: 00; Admin Dose 40 MG; Start 12/28/16 at 06:00 CINDA VALDES Dec 28, 2016 11:23 CINDA VALDES Dec 28, 2016 11:23
[2016-12-28] MEDS ORDERED: POTASSIUM CHLORIDE (SR) 20 MEQ TAB PO STA (14:02)
[2016-12-28] MEDS ORDERED: FURO40TA4 PO (14:15)
[2016-12-28] MEDS ORDERED: UDKCL40 PO (14:15)
[2016-12-28] MEDS ORDERED: POTASSIUM CHLORIDE (SR) 20 MEQ TAB PO SCH (14:30)
[2016-12-28] MEDS ORDERED: POTASSIUM CHLORIDE 20 MEQ POWDER FOR ORAL SOLN GTB ONE (15:00)
[2016-12-28 17:11] LABS: POTASSIUM 4.2 mmol/L (3.5-5.1)
--- NOTE | 2016-12-28 17:12 | GILP ---
DATE OF PROCEDURE: PROCEDURE: Esophagogastroduodenoscopy with biopsies. BRIEF HISTORY AND INDICATIONS: The patient is being evaluated for significant anemia. PREMEDICATION: Monitored anesthesia care by anesthesiologist. SURGEON: Kaylen Alcocer MD. INSTRUMENT USED: Olympus panendoscope. TECHNIQUE: After informed consent, with the patient/relatives understanding the procedure, its indic ations, potential risks and complications, including but not limited to: allergic reaction, bleeding , perforation or infection, and after all pertinent questions were answered to the patient's satisfa ction, the patient/relatives signed witnessed informed consent. Following this, premedication was administered slowly IV push under careful cardiovascular and respi ratory monitoring with pulse oximetry, automatic blood pressure and electronic device monitor. Once the sedative effect was achieved the patient was place in the left lateral decubitus, the panen doscope was introduced and advanced under visual control. Careful examination of the upper gastrointestinal tract, both on insertion as well as withdrawal of the instrument disclosed the following findings: ESOPHAGUS: The distal esophagus shows mild erythema and edema of the mucosa. STOMACH: A small hiatal hernia is present. Upon entrance to the stomach air was insufflated, the ga stric ruiz distended normally. There is erythema and edema of the mucosa of a moderate degree. Bio psies were obtained to rule out H. pylori infection. PYLORUS: The pylorus appears patent and within normal limits, with no evidence of gastric outlet obs truction. DUODENUM: The duodenal mucosa was carefully examined in the duodenal bulb as well as the second port ion of the duodenum and appears unremarkable with no evidence of duodenitis, ulcer or neoplasm. The instrument was then withdrawn, the patient tolerated the procedure well and was transfer out of the endoscopy suite awake, and in good condition to continue recovery under observation IMPRESSION: 1. Mild distal esophagitis. 2. Small hiatal hernia. 3. Moderate gastritis, rule out Helicobacter pylori infection. Biopsies obtained. PLAN: The patient will be treated with PPIs. Further recommendation will depend on her clinical co urse as well as review of biopsies. Dictated By: KAYLEN ALCOCER MS/AMY Conf#: [id number] DID#: [id number] CC: KAYLEN ALCOCER;*EndCC*
[2016-12-28 17:13] LABS: CREATININE 0.54 mg/dl (0.44-1.00)
[2016-12-28 17:14] LABS: CALCIUM 8.8 mg/dl (8.4-10.2)
[2016-12-28] MEDS: HYDROCODONE/APAP (5/325) TAB PO PRN (18:44)
[2016-12-29] MEDS ORDERED: POTASSIUM CHLORIDE 20 MEQ POWDER FOR ORAL SOLN GTB SCH (09:00)
[2016-12-29] MEDS ORDERED: INFLUENZA VIRUS VACCINE 0.5 ML (DISPENSING) IM* ONE (09:00)
--- NOTE | 2016-12-30 12:12 | DS ---
Date/Time of Note Date/Time of Note DATE: 12/30/16 TIME: 12:07 Discharge Summary Admission/Discharge Info Admit Date/Time Dec 24, 2016 at 01:03 Discharge Date/Time Dec 28, 2016 at 19:31 Final Diagnosis 1. Chronic anemia, s/p 2 units PRBC transfusion, stable, follow up with PCP 2. 1. Hypokalemia, KCL, corrected 3. COPD, stable 4. Chronic respiratory failure with Trach / Vent dependent, follow up with pulmonology 5. Hypothyroidism, on supplement 6. Dyslipidemia, on statin 7. Major depressive Disorder, stable 8. Hx of endoscopy with duodenal perforation in the past that warranted complicated repair Patient Condition: Stable Hospital Course 76-year-old female multiple medical comorbidities sent for low hemoglobin of 7 it would likely require transfusion. Patient has chronic trach patient but is communicative. States that this happened to her before requiring transfusion. She denies any GI bleeding. She does feel very weak, dizzy and lightheaded. Also states that she has mild shortness of breath. Denies any chest pain. On admission, H/H were 7.2/22.3. Patient got 2 units of PRBC transfusion, H/H improved to 10/30.4 on 12/28/2016. Patient had hypokalemia likely from lasix. Patient was given K supplement. K improved to 4.2 on 12/28/2016. Home Meds Active Scripts Potassium Chloride* (KCl*) 40 Meq/30 Ml Soln, 20 MEQ PO DAILY for 30 Days, MEQ Prov:ALETHA JULIO MD 12/28/16 Furosemide* (Furosemide*) 40 Mg Tablet, 40 MG PO DAILY for 30 Days, TAB Prov:ALETHA JULIO MD 12/28/16 Reported Medications Epoetin Marlo (Procrit) 10,000 Unit/1 Ml Vial, 74121 UNIT IJ LUPE SEVERINO SAT, VIAL 12/23/16 Amiodarone Hcl* (Amiodarone Hcl*) 200 Mg Tablet, 200 MG GTB DAILY, #30 TAB 12/23/16 Metoprolol Tartrate* (Lopressor*) 25 Mg Tablet, 12.5 MG GTB BID, #60 TAB 12/23/16 Simethicone* (Anti-Gas/80*) 80 Mg Tab.chew, 80 MG GTB Q8 Y for DISTENSION/GAS/ BLOATING, TAB.CHEW 12/23/16 Pregabalin* (Lyrica*) 75 Mg Capsule, 75 MG GTB Q8, CAP 12/23/16 Terazosin Hcl* (Terazosin Hcl*) 5 Mg Capsule, 5 MG GTB Q12, CAP 12/23/16 Sodium Chloride* (Sodium Chloride*) 1 Gm Tablet, 1 GM GTB BID, TAB 12/23/16 Sennosides* (Senna Lax*) 8.6 Mg Tablet, 1 TAB GTB BID, TAB 12/23/16 Magnesium Oxide* (Magnesium Oxide*) 400 Mg Tablet, 400 MG GTB Q12, TAB 12/23/16 Docusate Sodium* (Docusate Sodium*) 60 Mg/15 Ml Syrup, 100 MG GTB Q12, ML 12/23/16 Levothyroxine Sodium* (Levothyroxine Sodium*) 75 Mcg Tablet, 75 MCG PO BEFORE BREAKFAST, #30 TAB 12/23/16 Metoclopramide* (Reglan*) 10 Mg/10 Ml Soln, 5 MG GTB Q6, ML 12/23/16 Ferrous Sulfate (Iron) 325 Mg Capsule.er, 330 MG GTB Q8, CAP 12/23/16 Lactulose* (Lactulose*) 20 Gm/30 Ml Solution, 20 GM GTB BID Y for CONSTIPATION, ML 12/23/16 Clonidine Hcl* (Clonidine Hcl*) 0.1 Mg Tab, 0.1 MG GTB Q8 Y for ELEVATED BLOOD PRESSURE, TAB 12/23/16 Magnesium Hydroxide* (Milk Of Magnesia*) 400 Mg/5 Ml Oral.susp, 30 ML GTB DAILY , ML 12/23/16 Bethanechol Chloride* (Bethanechol Chloride*) 50 Mg Tablet, 50 MG GTB QID, TAB 12/23/16 Multivitamins* (Theragran*) 1 Tab Tab, 1 TAB GTB DAILY, TAB 12/23/16 Prednisone* (Prednisone*) 5 Mg Tab, 5 MG GTB DAILY, TAB 12/23/16 Lactobacillus Acidoph/Bulgaricus* (Floranex*) 1 Each Tablet, 1 TAB.CHEW GTB DAILY, TAB.CHEW 12/23/16 Ergocalciferol (Vitamin D2) (VITAMIN D2) 50,000 Unit Capsule, 24622 UNIT PO FRIDAYS, CAP 12/23/16 Atorvastatin Calcium (Atorvastatin Calcium) 10 Mg Tablet, 5 MG GTB QHS, #30 TAB 12/23/16 Trazodone Hcl* (Trazodone Hcl*) 50 Mg Tablet, 50 MG GTB QHS, #30 TAB 12/23/16 Duloxetine Hcl* (Cymbalta*) 60 Mg Capsule.dr, 60 MG GTB DAILY, CAP 12/23/16 Insulin Regular, Human (Humulin R) 100 Unit/1 Ml Vial, 0-10 UNIT IJ Q6, VIAL 12/23/16 Discontinued Reported Medications Furosemide* (Lasix*) 20 Mg Tablet, 20 MG PO DAILY, TAB 12/24/16 Levofloxacin* (Levaquin*) 750 Mg Tablet, 750 MG PO DAILY, TAB started on 12-20-16 for 7 days 12/24/16 Follow-up Plan PCP in one week Pending Labs Laboratory Tests Test 12/29/16 12:16 12/29/16 12:17 Lab Scanned Report REFERENCE [id number] BLOOD [id number] ALETHA JULIO MD Dec 30, 2016 12:12
== END 2016-12-28 19:31 | DRG 811 ==
LOC: E/R 22:06 → ICU 12-24 01:03 → TEL 12-27 23:50
PROVIDERS: ADMIT Internal Medicine; ATTEND Internal Medicine
PROC: 5A1955Z Respiratory Ventilation, Greater than 96 Consecutive Hours (ICD-10-PCS; 2016-12-23)
PROC: 30233N1 Transfusion of Nonautologous Red Blood Cells into Peripheral Vein, Percutaneous Approach (ICD-10-PCS; principal; 2016-12-24)
PROC: 0DB68ZX Excision of Stomach, Via Natural or Artificial Opening Endoscopic, Diagnostic (ICD-10-PCS; 2016-12-27)
DX: D64.9 Anemia, unspecified (principal); J96.00 Acute respiratory failure, unspecified whether with hypoxia or hypercapnia; J44.1 Chronic obstructive pulmonary disease with (acute) exacerbation; J96.10 Chronic respiratory failure, unspecified whether with hypoxia or hypercapnia; K92.2 Gastrointestinal hemorrhage, unspecified; Z93.0 Tracheostomy status; E03.9 Hypothyroidism, unspecified; E78.5 Hyperlipidemia, unspecified; I25.2 Old myocardial infarction; F32.9 Major depressive disorder, single episode, unspecified; E83.42 Hypomagnesemia; F41.9 Anxiety disorder, unspecified; E87.6 Hypokalemia; K20.9 Esophagitis, unspecified; K44.9 Diaphragmatic hernia without obstruction or gangrene; K29.70 Gastritis, unspecified, without bleeding
CPT/HCPCS: 36415; 36430; 36600; 71010; 74176; 76700; 80048; 80053; 80069; 82270; 82728; 82803; 83540; 83735; 84100; 84132; 84443; 84466; 84484; 85025; 85045; 85610; 85730; 86850; 86900; 86901; 86920; 87081; 88305; 88312; 92610; 93005; 94003; 94640; 94644; 94664; 96374; 96375; 96376; J1940; C9113; J2060; J2270; J2916; J3475; J3480; J7042; P9016